=== PATIENT | female | born 1970 | race Caucasian/White ===

== ENCOUNTER → 2016-06-12 | Outpatient (CLI) | payer MEDICARE, MEDICAID ==
[~2016-06-12] MED LIST: ALBUAER3 IN; BECL0.07 INH; DULO60CA PO; FLUD0.1T2 PO; LAMO100T44 PO; METO25TA62 PO; MIDO10TA PO; OXYC10TA44 PO; PANT40TA2 PO; RISP1TAB63 PO; SIMV-13 PO; TRAZ50TA2 PO; ZONI100C43 PO
[2016-06-12 15:33] LABS: Basophils # (auto) 0 uL; Basophils % (auto) 0.4 % (0.0-2.0); DEFINITIVE VIEW TRANSMISSION; Eosinophils # (auto) 0.1 uL; Eosinophils % (auto) 1.9 % (0.0-7.0); Hemoglobin 11.4 g/dL (12.2-16.2); Lymphocytes # (auto) 1.7 uL; Lymphocytes % (auto) 23.7 % (10.0-50.0); Mean Corpuscular Hemoglobin 25.4 pg (28.0-32.0); Mean Corpuscular Hgb Conc. 30.7 g/dL (32.0-36.0); Mean Platelet Volume 7.6 fL (7.4-10.4); Monocytes # (auto) 0.5 uL; Monocytes % (auto) 6.5 % (0.0-12.0); Neutrophils % (auto) 67.5 % (37.0-80.0); Platelet Count (auto) 293 10^3/uL (140-450); Red Cell Distribution Width 13.2 % (11.6-16.0); White Blood Cell 7.4 10^3/uL (4.4-10.8)
[2016-06-12 15:40] LABS: Albumin 3.8 g/dL (3.4-5.0); BUN/Creatinine Ratio 12.1; Bilirubin, Total 0.2 mg/dL (0.2-1.0); Calcium 8.9 mg/dL (8.5-10.1); Potassium 3.8 mmol/L (3.5-5.1); Total Protein 7.6 g/dL (6.4-8.2)
[2016-06-12 16:22] LABS: Urine Bilirubin Negative (Negative); Urine Blood Negative /uL (Negative); Urine Color Yellow (Yellow); Urine Glucose Normal (Normal); Urine Ketone Negative (Negative); Urine Mucus FEW (None Seen); Urine Nitrite Negative (Negative); Urine RBC 1 /hpf (0 - 4); Urine Squamous Epithelial Cell FEW /hpf (<5); Urine Urobilinogen Normal (Negative); Urine pH 6.5 (5.0-8.0)
== END | disposition home or self-care (01) ==
LOC: LAB 14:10
PROVIDERS: ATTEND Internal Medicine
DX: I10 Essential (primary) hypertension (principal); E55.9 Vitamin D deficiency, unspecified; Z00.00 Encounter for general adult medical examination without abnormal findings
CPT/HCPCS: 36415; 80053; 80061; 81001; 82306; 84443; 85025

== ENCOUNTER → 2016-10-29 | Outpatient (CLI) | payer MEDICARE, MEDICAID ==
[2016-10-29 12:17] LABS: Basophils # (auto) 0 uL; Basophils % (auto) 0.7 % (0.0-2.0); CONDITION Y; Eosinophils # (auto) 0.1 uL; Eosinophils % (auto) 1.8 % (0.0-7.0); Hematocrit 38.6 % (36.0-46.0); Hemoglobin 12.9 g/dL (12.2-16.2); Lymphocytes # (auto) 1.4 uL; Lymphocytes % (auto) 27.1 % (10.0-50.0); Mean Corpuscular Hemoglobin 27.5 pg (28.0-32.0); Mean Corpuscular Hgb Conc. 33.4 g/dL (32.0-36.0); Mean Corpuscular Volume 82.2 fL (80.0-100.0); Mean Platelet Volume 6.9 fL (7.4-10.4); Monocytes # (auto) 0.4 uL; Monocytes % (auto) 6.9 % (0.0-12.0); Neutrophils # (auto) 3.3 uL; Neutrophils % (auto) 63.5 % (37.0-80.0); Platelet Count (auto) 355 10^3/uL (140-450); Red Cell Distribution Width 13.6 % (11.6-16.0); White Blood Cell 5.2 10^3/uL (4.4-10.8)
[2016-10-29 12:41] LABS: Urine Bilirubin Negative (Negative); Urine Blood Negative /uL (Negative); Urine Color Yellow (Yellow); Urine Glucose Normal (Normal); Urine Ketone Negative (Negative); Urine Nitrite Negative (Negative); Urine RBC <1 /hpf (0 - 4); Urine Squamous Epithelial Cell FEW /hpf (<5); Urine Urobilinogen Normal (Negative)
[2016-10-29 12:53] LABS: Albumin 4.1 g/dL (3.4-5.0); Bilirubin, Total 0.3 mg/dL (0.2-1.0); Calcium 8.9 mg/dL (8.5-10.1); Potassium 3.9 mmol/L (3.5-5.1)
== END | disposition home or self-care (01) ==
LOC: LAB 12:00
PROVIDERS: ATTEND Internal Medicine
DX: Z00.00 Encounter for general adult medical examination without abnormal findings (principal); I10 Essential (primary) hypertension
CPT/HCPCS: 36415; 80053; 81001; 85025

== ENCOUNTER → 2017-06-09 | Outpatient (CLI) | payer MEDICARE, MEDICAID ==
[2017-06-09 09:33] LABS: Basophils # (auto) 0 uL; Basophils % (auto) 0.6 % (0.0-2.0); Eosinophils # (auto) 0.1 uL; Eosinophils % (auto) 2.1 % (0.0-7.0); Hematocrit 38.7 % (36.0-46.0); Hemoglobin 12.9 g/dL (12.2-16.2); Lymphocytes # (auto) 1.5 uL; Mean Corpuscular Hgb Conc. 33.3 g/dL (32.0-36.0); Mean Corpuscular Volume 81.2 fL (80.0-100.0); Monocytes # (auto) 0.4 uL; Monocytes % (auto) 6.3 % (0.0-12.0); Neutrophils # (auto) 4.3 uL; Platelet Count (auto) 305 10^3/uL (140-450); Red Blood Cells 4.76 10^6/uL (4.0-5.20); Red Cell Distribution Width 13.2 % (11.8-14.3); White Blood Cell 6.4 10^3/uL (4.4-10.8)
[2017-06-09 13:15] LABS: BUN/Creatinine Ratio 17.1; Bilirubin, Total 0.3 mg/dL (0.2-1.0); Calcium 8.8 mg/dL (8.5-10.1); Potassium 3.9 mmol/L (3.5-5.1)
== END | disposition home or self-care (01) ==
LOC: LAB 09:09
PROVIDERS: ATTEND Physician Assistant
DX: E78.2 Mixed hyperlipidemia (principal); M79.7 Fibromyalgia; G89.4 Chronic pain syndrome; R73.9 Hyperglycemia, unspecified; J45.998 Other asthma
CPT/HCPCS: 36415; 80053; 80061; 82306; 83036; 84443; 85025

== ENCOUNTER → 2017-09-02 | Outpatient (CLI) | payer MEDICARE, MEDICAID ==
[2017-09-02 11:39] LABS: Free T4 (Free Thyroxine) 1.18 ng/dL (0.89-1.76); T3 Total 1.03 ng/mL (0.60-1.81)
== END | disposition home or self-care (01) ==
LOC: LAB 09:56
PROVIDERS: ATTEND Physician Assistant
DX: E04.1 Nontoxic single thyroid nodule (principal); F32.9 Major depressive disorder, single episode, unspecified; I10 Essential (primary) hypertension; Z87.891 Personal history of nicotine dependence
CPT/HCPCS: 36415; 84439; 84443; 84480

== ENCOUNTER → 2018-02-03 | Outpatient (CLI) | payer MEDICARE, MEDICAID ==
[2018-02-03 13:40] LABS: Basophils # (auto) 0.1 uL; Basophils % (auto) 0.7 % (0.0-2.0); Eosinophils # (auto) 0.2 uL; Hematocrit 37.9 % (36.0-46.0); Mean Corpuscular Hemoglobin 27.6 pg (28.0-32.0); Mean Corpuscular Hgb Conc. 34.1 g/dL (32.0-36.0); Mean Corpuscular Volume 80.9 fL (80.0-100.0); Monocytes # (auto) 0.5 uL; Monocytes % (auto) 5.9 % (0.0-12.0); Neutrophils # (auto) 6.2 uL; Neutrophils % (auto) 69.4 % (37.0-80.0); Platelet Count (auto) 368 10^3/uL (140-450); Red Blood Cells 4.69 10^6/uL (4.0-5.20); Red Cell Distribution Width 13.2 % (11.8-14.3); White Blood Cell 8.9 10^3/uL (4.4-10.8)
[2018-02-03 15:26] LABS: Potassium 3.9 mmol/L (3.5-5.1)
[2018-02-03 16:00] LABS: Albumin 3.8 g/dL (3.4-5.0); BUN/Creatinine Ratio 13.8; Bilirubin, Total 0.4 mg/dL (0.2-1.0); Calcium 8.3 mg/dL (8.5-10.1); Total Protein 7.9 g/dL (6.4-8.2)
== END | disposition home or self-care (01) ==
LOC: LAB 12:31
PROVIDERS: ATTEND Physician Assistant
DX: E04.1 Nontoxic single thyroid nodule (principal); M79.7 Fibromyalgia; E78.1 Pure hyperglyceridemia; J44.9 Chronic obstructive pulmonary disease, unspecified; F31.32 Bipolar disorder, current episode depressed, moderate
CPT/HCPCS: 36415; 80053; 80061; 84443; 85025

== ENCOUNTER 2018-04-11 14:49 | Emergency (ER) | payer MEDICARE, MEDICAID ==
[~2018-04-11] VITALS: Ht 167.6 cm; Wt 79.4 kg
[2018-04-11 15:53] LABS: Alanine Aminotransferase 27 U/L (13-56); Albumin 3.9 g/dL (3.4-5.0); Anion Gap 4 (5-15); Blood Urea Nitrogen 12 mg/dL (7-18); Calcium 9.1 mg/dL (8.5-10.1); Carbon Dioxide 25 mmol/L (21-32); Chloride 106 mmol/L (98-107); Glucose 91 mg/dL (74-106); Sodium 135 mmol/L (136-145)
[2018-04-11 15:58] LABS: Alkaline Phosphatase 88 U/L (45-117); Aspartate Aminotransferase 13 U/L (15-37); BUN/Creatinine Ratio 16.7; Bilirubin, Total 0.2 mg/dL (0.2-1.0); GFR African American 113 mL/min; GFR Non-African American 93 mL/min; Total Protein 7.7 g/dL (6.4-8.2)
[2018-04-11 16:27] LABS: Basophils # (auto) 0 uL; Basophils % (auto) 0.7 % (0.0-2.0); Eosinophils # (auto) 0.2 uL; Eosinophils % (auto) 2.3 % (0.0-7.0); Hematocrit 37.2 % (36.0-46.0); Hemoglobin 12.3 g/dL (12.2-16.2); Lymphocytes # (auto) 1.9 uL; Lymphocytes % (auto) 27.4 % (10.0-50.0); Mean Corpuscular Hemoglobin 27.1 pg (28.0-32.0); Mean Corpuscular Volume 82.2 fL (80.0-100.0); Monocytes # (auto) 0.5 uL; Monocytes % (auto) 7.2 % (0.0-12.0); Neutrophils # (auto) 4.4 uL; Neutrophils % (auto) 62.4 % (37.0-80.0); Nucleated Red Blood Cells % 0.1 %; Platelet Count (auto) 344 10^3/uL (140-450); Red Blood Cells 4.53 10^6/uL (4.0-5.20); Red Cell Distribution Width 12.9 % (11.8-14.3); White Blood Cell 7.1 10^3/uL (4.4-10.8)
[2018-04-11] MEDS ORDERED: LORazepam 0.5 MG TAB PO ONE (18:00)
[2018-04-11] MEDS ORDERED: IBUPROFEN 800 MG TAB PO ONE (18:00)
[2018-04-11 18:12] VITALS: BP 144/80
[2018-04-11] MEDS ORDERED: PANTOPRAZOLE 40 MG TAB PO ONE (19:00)
[2018-04-11 19:21] LABS: Urine Bacteria NONE SEEN /hpf (None Seen); Urine Blood Negative /uL (Negative); Urine Mucus FEW (None Seen); Urine Specific Gravity 1.018 (1.001-1.035); Urine WBC 1 /hpf (0 - 5)
== END 2018-04-11 19:44 | disposition home or self-care (01) ==
LOC: ER 15:01
DX: R07.89 Other chest pain (principal); J45.909 Unspecified asthma, uncomplicated; F41.9 Anxiety disorder, unspecified; F32.9 Major depressive disorder, single episode, unspecified; G89.4 Chronic pain syndrome; F17.210 Nicotine dependence, cigarettes, uncomplicated; R51 Headache; R42 Dizziness and giddiness; Z88.6 Allergy status to analgesic agent; Z79.899 Other long term (current) drug therapy
CPT/HCPCS: 36415; 71045; 80053; 81001; 84484; 85025; 93005

== ENCOUNTER → 2018-05-10 | Outpatient (CLI) | payer MEDICARE, MEDICAID | END | disposition home or self-care (01) | LOC: LAB 15:00 | PROVIDERS: ATTEND Physician Assistant | DX: L82.1 Other seborrheic keratosis (principal) ==

== ENCOUNTER → 2018-09-14 | Outpatient (CLI) | payer MEDICARE, MEDICAID ==
[2018-09-14 13:18] LABS: Basophils # (auto) 0 uL; Basophils % (auto) 0.6 % (0.0-2.0); Eosinophils # (auto) 0.1 uL; Eosinophils % (auto) 1.7 % (0.0-7.0); Hematocrit 36.7 % (36.0-46.0); Hemoglobin 12.2 g/dL (12.2-16.2); Lymphocytes % (auto) 27.6 % (10.0-50.0); Mean Corpuscular Hemoglobin 27.1 pg (28.0-32.0); Mean Corpuscular Hgb Conc. 33.3 g/dL (32.0-36.0); Mean Corpuscular Volume 81.2 fL (80.0-100.0); Monocytes # (auto) 0.6 uL; Neutrophils # (auto) 4.5 uL; Neutrophils % (auto) 62.1 % (37.0-80.0); Nucleated Red Blood Cells % 0.1 %; Platelet Count (auto) 337 10^3/uL (140-450); Red Blood Cells 4.52 10^6/uL (4.0-5.20); Red Cell Distribution Width 13.4 % (11.8-14.3); White Blood Cell 7.2 10^3/uL (4.4-10.8)
[2018-09-14 14:21] LABS: BUN/Creatinine Ratio 16.3; Calcium 8.7 mg/dL (8.5-10.1)
== END | disposition home or self-care (01) ==
LOC: LAB 12:55
PROVIDERS: ATTEND Registered Nurse General Practice
DX: E16.2 Hypoglycemia, unspecified (principal); R42 Dizziness and giddiness; R94.6 Abnormal results of thyroid function studies; R79.89 Other specified abnormal findings of blood chemistry
CPT/HCPCS: 36415; 80048; 80061; 83036; 84439; 84443; 85025

== ENCOUNTER → 2018-11-14 | Outpatient (CLI) | payer MEDICARE, MEDICAID ==
[2018-11-14 17:35] LABS: Free T4 (Free Thyroxine) 0.81 ng/dL (0.89-1.76); T3 Total 0.74 ng/mL (0.60-1.81)
== END | disposition home or self-care (01) ==
LOC: LAB 15:37
PROVIDERS: ATTEND Physician Assistant
DX: R79.89 Other specified abnormal findings of blood chemistry (principal); J45.909 Unspecified asthma, uncomplicated; I10 Essential (primary) hypertension
CPT/HCPCS: 36415; 84439; 84443; 84480

== ENCOUNTER → 2018-12-29 | Outpatient (CLI) | payer MEDICARE, MEDICAID | END | disposition home or self-care (01) | LOC: XYW 10:26 | PROVIDERS: ATTEND Internal Medicine | DX: R55 Syncope and collapse (principal); I51.7 Cardiomegaly; Z87.898 Personal history of other specified conditions | CPT/HCPCS: 93306 ==

== ENCOUNTER → 2019-01-11 | Outpatient (CLI) | payer MEDICARE, MEDICAID ==
[~2019-01-11] VITALS: Ht 167.6 cm; Wt 84.4 kg
[~2019-01-11] MED LIST changes: +ADENOSINE 71 MG in GIVE UN-DILUTED 0 ML IV STA
[2019-01-11 10:36] LABS: Cholesterol 152 mg/dL (< 200); HDL Cholesterol 49 mg/dL (40-59); LDL Cholesterol 86 mg/dL (< 100); Triglycerides 156 mg/dL (< 150)
== END | disposition home or self-care (01) ==
LOC: LAB 09:14
PROVIDERS: ATTEND Physician Assistant
DX: E78.1 Pure hyperglyceridemia (principal)
CPT/HCPCS: 36415; 80061; J0153

== ENCOUNTER → 2019-01-11 | Outpatient (CLI) | payer MEDICARE, MEDICAID ==
[~2019-01-11] MED LIST changes: -ADENOSINE 71 MG in GIVE UN-DILUTED 0 ML IV STA; -MIDO10TA PO; +MIDO10TA2 PO
== END | disposition home or self-care (01) ==
LOC: XY 09:36
PROVIDERS: ATTEND Internal Medicine
DX: I95.1 Orthostatic hypotension (principal); E78.5 Hyperlipidemia, unspecified; Z87.898 Personal history of other specified conditions
CPT/HCPCS: 36415; 78452; 80061; 93017; A9500; J0153

== ENCOUNTER 2019-01-25 09:33 | Day surgery (SDC) | payer MEDICARE, MEDICAID ==
[2019-01-20 11:55] LABS: Basophils # (auto) 0.1 uL; Hemoglobin 11.8 g/dL (12.2-16.2); Monocytes # (auto) 0.6 uL; Nucleated Red Blood Cells % 0.1 %
[2019-01-20 11:58] LABS: Basophils % (auto) 0.8 % (0.0-2.0); Eosinophils # (auto) 0.2 uL; Hematocrit 35.3 % (36.0-46.0); Lymphocytes # (auto) 2.2 uL; Lymphocytes % (auto) 28.4 % (10.0-50.0); Mean Corpuscular Hemoglobin 26.9 pg (28.0-32.0); Mean Corpuscular Hgb Conc. 33.3 g/dL (32.0-36.0); Mean Corpuscular Volume 80.7 fL (80.0-100.0); Monocytes % (auto) 7.7 % (0.0-12.0); Neutrophils # (auto) 4.8 uL; Neutrophils % (auto) 61.1 % (37.0-80.0); Platelet Count (auto) 380 10^3/uL (140-450); Red Blood Cells 4.37 10^6/uL (4.0-5.20); Red Cell Distribution Width 14.7 % (11.8-14.3); White Blood Cell 7.8 10^3/uL (4.4-10.8)
[2019-01-20 12:14] LABS: INR < 0.93 (0.9-1.15)
[2019-01-20 12:18] LABS: Albumin 4.2 g/dL (3.4-5.0); Calcium 9.3 mg/dL (8.5-10.1); Potassium 3.9 mmol/L (3.5-5.1)
[2019-01-20 12:22] LABS: BUN/Creatinine Ratio 20.8; Bilirubin, Total 0.2 mg/dL (0.2-1.0); Total Protein 8.3 g/dL (6.4-8.2)
[2019-01-20 13:15] LABS: Urine Amorphous Crystal FEW /hpf (None Seen); Urine Bacteria NONE SEEN /hpf (None Seen); Urine Blood Negative /uL (Negative); Urine Specific Gravity 1.016 (1.001-1.035); Urine WBC 1 /hpf (0 - 5)
[~2019-01-25] VITALS: Ht 167.6 cm; Wt 81.8 kg
[~2019-01-25 09:33] MED LIST changes: -BECL0.07 INH; +BUSP30TA21 PO; +FENO1TAB42 PO; +FURO20TA3 PO; +HYDR50TA69 PO; +IBUP800T24 PO; +LEVO25TA6 PO; +LUBI24CA6 PO; +PROM25TA21 PO; +QUET300T23 PO; -RISP1TAB63 PO; +ROSU40TA PO; -SIMV-13 PO; -TRAZ50TA2 PO; +UMEC1AER IN
[2019-01-25] MEDS ORDERED: LIDOCAINE 2%HCL (LOCAL ANESTH.) INJ 20ML MDV ONE (11:48)
[2019-01-25] MEDS ORDERED: MIDAZOLAM HCL 1MG/1ML-2 ML VIAL ONE ×2 (11:48→12:21)
[2019-01-25] MEDS ORDERED: fentaNYL CITRATE 100 MCG/2 ML VL ONE ×2 (11:48→12:20)
[2019-01-25] MEDS ORDERED: VERAPAMIL 2.5MG/ML INJ 2ML VIAL IV ONE (11:48)
[2019-01-25] MEDS ORDERED: IOHEXOL 350 MG/ML 100ML IJ ONE (11:48)
[2019-01-25] MEDS ORDERED: ONDANSETRON HCL 4 MG/2 ML VIAL ONE (12:04)
[2019-01-25] MEDS ORDERED: HEPARIN SODIUM (PORCINE) 5000 UNITS/ML 1ML VIAL ONE (12:23)
[2019-01-25] MEDS ORDERED: KETOROLAC TROMETH 30 MG/ML 1ML VIAL IV ONE (13:15)
== END 2019-01-25 14:50 | disposition home or self-care (01) ==
LOC: CATH 09:33
PROVIDERS: ATTEND Internal Medicine
DX: R07.89 Other chest pain (principal); I10 Essential (primary) hypertension; E78.5 Hyperlipidemia, unspecified; J44.9 Chronic obstructive pulmonary disease, unspecified; F17.210 Nicotine dependence, cigarettes, uncomplicated; M19.90 Unspecified osteoarthritis, unspecified site; Z90.2 Acquired absence of lung [part of]; Z88.8 Allergy status to other drugs, medicaments and biological substances; Z79.899 Other long term (current) drug therapy; Z98.890 Other specified postprocedural states; Z90.710 Acquired absence of both cervix and uterus
CPT/HCPCS: 36415; 80053; 81001; 81025; 85025; 85610; 85730; 93454; C1769; C1887; C1894; J1644; J1885; J2250; J2405; J3010; J7030; Q9967; 99152; 99153

== ENCOUNTER 2019-02-22 08:29 | Day surgery (SDC) | payer MEDICARE, MEDICAID ==
[2019-02-20 11:34] LABS: Basophils # (auto) 0 uL; Basophils % (auto) 0.5 % (0.0-2.0); Eosinophils # (auto) 0.2 uL; Eosinophils % (auto) 3.1 % (0.0-7.0); Hematocrit 35.1 % (36.0-46.0); Hemoglobin 11.3 g/dL (12.2-16.2); Lymphocytes # (auto) 1.8 uL; Lymphocytes % (auto) 27.8 % (10.0-50.0); Mean Corpuscular Hemoglobin 26.3 pg (28.0-32.0); Mean Corpuscular Hgb Conc. 32.2 g/dL (32.0-36.0); Mean Corpuscular Volume 81.5 fL (80.0-100.0); Monocytes # (auto) 0.4 uL; Monocytes % (auto) 6.1 % (0.0-12.0); Neutrophils % (auto) 62.5 % (37.0-80.0); Platelet Count (auto) 342 10^3/uL (140-450); Red Blood Cells 4.31 10^6/uL (4.0-5.20); Red Cell Distribution Width 14.3 % (11.8-14.3); White Blood Cell 6.4 10^3/uL (4.4-10.8)
[2019-02-20 11:46] LABS: INR 0.93 (0.9-1.15); Partial Thromboplastin Time 29.3 sec (23.64-32.05)
[2019-02-20 12:59] LABS: Albumin 3.7 g/dL (3.4-5.0); BUN/Creatinine Ratio 17.4; Calcium 9.2 mg/dL (8.5-10.1); Potassium 3.8 mmol/L (3.5-5.1)
[2019-02-20 13:01] LABS: Bilirubin, Total 0.3 mg/dL (0.2-1.0); Total Protein 7.5 g/dL (6.4-8.2)
[~2019-02-22] VITALS: Ht 167.6 cm; Wt 83.5 kg
[2019-02-22] MEDS ORDERED: VANCOMYCIN 1GM/250ML 250 ML IV ONE (09:54)
[2019-02-22] MEDS ORDERED: fentaNYL CITRATE 100 MCG/2 ML VL ONE (10:03)
[2019-02-22] MEDS ORDERED: VANCOMYCIN HCL 1000 MG VL ONE (10:03)
[2019-02-22] MEDS ORDERED: MIDAZOLAM HCL 1MG/1ML-2 ML VIAL ONE ×2 (10:04→12:16)
[2019-02-22] MEDS ORDERED: LIDOCAINE 2%HCL (LOCAL ANESTH.) INJ 20ML MDV ONE (10:27)
[2019-02-22] MEDS ORDERED: ONDANSETRON HCL 4 MG/2 ML VIAL ONE (13:01)
[2019-02-22] MEDS ORDERED: ACETAMINOPHEN 325 MG TAB PO PRN (14:00)
[2019-02-22] MEDS ORDERED: HYDROcodone-ACET 5/325MG TAB PO PRN (14:00)
== END 2019-02-22 14:45 | disposition home or self-care (01) ==
LOC: CATH 08:29
PROVIDERS: ATTEND Internal Medicine
DX: R55 Syncope and collapse (principal); I25.10 Atherosclerotic heart disease of native coronary artery without angina pectoris; J44.9 Chronic obstructive pulmonary disease, unspecified; I10 Essential (primary) hypertension; E78.5 Hyperlipidemia, unspecified; F17.200 Nicotine dependence, unspecified, uncomplicated; M19.90 Unspecified osteoarthritis, unspecified site; M79.7 Fibromyalgia; Z90.710 Acquired absence of both cervix and uterus; Z90.2 Acquired absence of lung [part of]; Z88.8 Allergy status to other drugs, medicaments and biological substances; Z79.899 Other long term (current) drug therapy; Z98.890 Other specified postprocedural states
CPT/HCPCS: 33285; 36415; 80053; 85025; 85610; 85730; C1764; J2250; J2405; J3010; J3370; 99152; 99153

== ENCOUNTER 2019-03-14 17:49 | Inpatient (IN) | payer MEDICARE, MEDICAID ==
[~2019-03-14] VITALS: Ht 167.6 cm; Wt 96.0 kg
--- NOTE | 2019-03-14 18:04 | NUR ---
Direct Admit Note CECILIA MCMAHON admitted to Telemetry unit as a direct admit per MD order. Patient oriented to Anupama khan RN, unit, room, bed, and unit policies regarding patient care and visiting hours. Patient weighed by bed scale and encouraged to call if they need something. All questions and concerns addressed, patient verbalized understanding. Instructed patient on fall precautions and to call for assistance as needed. patient verbalized understanding. fall precautions in place with bed in lowest locked position with call light within reach. Patient's personal wheelchair at bedside. patient's significant other, Davin, reports that he will take the patient's personal wheelchair and patient's 2 purses home. Patient verbalized understanding and agreed to Davin taking those personal belongings home. Will continue to monitor q1hr & PRN.
--- NOTE | 2019-03-14 18:15 | NUR ---
Heidy Soto N.P., at bedside
[2019-03-14] MEDS ORDERED: HYDROcodone-ACET 10/325MG TAB PO ONE (18:30)
[2019-03-14] MEDS ORDERED: MORPHINE SULFATE 4 MG/ML SYR/VIAL IV PRN (18:30)
[2019-03-14] MEDS ORDERED: NITROGLYCERIN 0.4 MG SL TAB SL PRN ×2 (18:30→19:30)
[2019-03-14] MEDS ORDERED: ONDANSETRON HCL 4 MG/2 ML VIAL IV PRN (18:30)
[2019-03-14] MEDS ORDERED: ACETAMINOPHEN 325 MG TAB PO PRN (18:30)
--- NOTE | 2019-03-14 18:55 | NUR ---
Lizbeth Agrawal, at bedside.
[2019-03-14] MEDS ORDERED: MORPHINE SULF INJ 2 MG/ML SYRINGE 1ML IV PRN ×2 (19:00→19:30)
[2019-03-14] MEDS ORDERED: VANCOMYCIN PER PHARMACY 0 MG IV SCH (19:30)
--- NOTE | 2019-03-14 19:30 | NUR ---
Care endorsed to JEANNA Banda. Patient resting in bed with even and unlabored respirations, no distress noted. Admitting orders endorsed to JEANNA Banda. Solo verbalized understanding.
[2019-03-14 19:39] LABS: Basophils # (auto) 0.1 uL; Hemoglobin 11.5 g/dL (12.2-16.2); Lymphocytes # (auto) 2.4 uL; Monocytes # (auto) 0.8 uL
[2019-03-14 19:43] LABS: Basophils % (auto) 0.7 % (0.0-2.0); Eosinophils # (auto) 0.3 uL; Eosinophils % (auto) 2.5 % (0.0-7.0); Hematocrit 35.2 % (36.0-46.0); Lymphocytes % (auto) 22.7 % (10.0-50.0); Mean Corpuscular Hemoglobin 26.5 pg (28.0-32.0); Mean Corpuscular Hgb Conc. 32.8 g/dL (32.0-36.0); Mean Corpuscular Volume 80.8 fL (80.0-100.0); Monocytes % (auto) 7.6 % (0.0-12.0); Neutrophils % (auto) 66.5 % (37.0-80.0); Platelet Count (auto) 332 10^3/uL (140-450); Red Blood Cells 4.36 10^6/uL (4.0-5.20); White Blood Cell 10.6 10^3/uL (4.4-10.8)
[2019-03-14 19:58] LABS: Alanine Aminotransferase 30 U/L (13-56); Albumin 3.7 g/dL (3.4-5.0); Anion Gap 6 (5-15); Aspartate Aminotransferase 16 U/L (15-37); BUN/Creatinine Ratio 24.4; Blood Urea Nitrogen 22 mg/dL (7-18); Calcium 8.4 mg/dL (8.5-10.1); Carbon Dioxide 27 mmol/L (21-32); Chloride 104 mmol/L (98-107); GFR African American 87 mL/min; GFR Non-African American 72 mL/min; Glucose 96 mg/dL (74-106); Potassium 3.7 mmol/L (3.5-5.1); Sodium 137 mmol/L (136-145)
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
[2019-03-14 20:03] LABS: Alkaline Phosphatase 84 U/L (45-117); Bilirubin, Total 0.2 mg/dL (0.2-1.0); Total Protein 7.9 g/dL (6.4-8.2)
[2019-03-14] MEDS: VANCOMYCIN 1GM/250ML 250 ML IV SCH (21:16)
[2019-03-14] MEDS ORDERED: HYDROcodone-ACET 5/325MG TAB PO PRN (21:30)
[2019-03-14] MEDS ORDERED: TEMAZEPAM 15 MG CAP PO ONE (21:30)
[2019-03-14 22:00] VITALS: BP 125/72
[2019-03-14] MEDS: lamoTRIgine 100 MG TAB PO SCH (22:08)
[2019-03-14] MEDS: ATORVASTATIN 20 MG TAB PO SCH (22:09)
[2019-03-14] MEDS: PANTOPRAZOLE 40 MG TAB PO SCH (22:09)
[2019-03-14 22:36] VITALS: BP 125/72
[2019-03-14] MEDS: PIPERACILLIN-TAZOB 3.375GM 100 ML IV SCH (23:49)
[2019-03-15] MEDS: ALBUTEROL SULF 2.5 MG/0.5ML(0.5%) NEB SOLN NEB PRN ×3 (04:40→18:21)
[2019-03-15] MEDS: IPRATROPIUM BROM 0.5 MG/2.5ML INH SOL NEB PRN ×3 (04:40→18:21)
[2019-03-15 05:14] VITALS: BP 108/74
[2019-03-15] MEDS: PIPERACILLIN-TAZOB 3.375GM 100 ML IV SCH ×4 (05:55→23:33)
[2019-03-15] MEDS: MIDODRINE HCL 10 MG TAB PO SCH ×3 (05:56→17:26)
[2019-03-15] MEDS: LEVOTHYROXINE SODIUM 25 MCG TAB PO SCH (06:43)
[2019-03-15] MEDS: VANCOMYCIN 1GM/250ML 250 ML IV SCH ×2 (08:59→21:00)
[2019-03-15 09:00] VITALS: BP 138/80
[2019-03-15] MEDS: DULoxetine HCL 30 MG CAP PO SCH (09:01)
[2019-03-15] MEDS: ASPirin 81 mg TAB PO SCH (09:03)
[2019-03-15] MEDS: PANTOPRAZOLE 40 MG TAB PO SCH ×2 (09:03→21:29)
[2019-03-15] MEDS: CLOPIDOGREL BISULFATE 75 MG TAB PO SCH (09:03)
[2019-03-15] MEDS: FLUDROCORTISONE ACETATE 0.1 MG TAB PO SCH (09:05)
[2019-03-15] MEDS: METOPROLOL SUCCINATE XL 50 MG TAB PO SCH (09:05)
[2019-03-15] MEDS: FUROSEMIDE 20 MG TAB PO SCH (09:06)
[2019-03-15] MEDS: MORPHINE SULF INJ 2 MG/ML SYRINGE 1ML IV PRN ×2 (09:11→13:35)
[2019-03-15] MEDS: ONDANSETRON HCL 4 MG/2 ML VIAL IV PRN (09:12)
--- NOTE | 2019-03-15 09:30 | NUR ---
DRESSING CHANGED INCISIONAL WOUND ON LEFT CHEST CLEANED AND DRESSED. PT TOLERATED WELL.
[2019-03-15] MEDS ORDERED: PANTOPRAZOLE 40 MG/10 ML VIAL INJ IV SCH (10:00)
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
[2019-03-15 11:50] LABS: Potassium 3.7 mmol/L (3.5-5.1)
[2019-03-15 11:52] LABS: BUN/Creatinine Ratio 21.4
[2019-03-15 13:00] VITALS: BP 135/74
--- NOTE | 2019-03-15 13:15 | NUR ---
PAGED PICC LINE RN RE MIDLINE ORDER PER PICC RN, SHE WILL BE HERE IN ABOUT AN HOUR.
--- NOTE | 2019-03-15 15:15 | NUR ---
Midline Placement: Patient educated on need for midline placement. All risks and benefits explained and all questions and concerns addresses prior to procedure. 18g/10cm midline inserted via right basilic vein using Ultrasound. Sterile technique utilized. Blood return obtained from lumen and flushed easily with NS using proper technique. Midline secured with saline lock; biodisc and occlusive dressing applied. Primary RN notified. Midline lot #[id number]
[2019-03-15] MEDS ORDERED: PROMETHAZINE HCL 25 MG/ML 1ML IV PRN (15:45)
[2019-03-15] MEDS ORDERED: hydrOXYzine 25 MG TAB or CAP PO PRN (15:45)
--- NOTE | 2019-03-15 15:45 | NUR ---
PAGED DR SAMUELS RE: PT'S HOME MEDS NEEDS TO BE ORDERED
--- NOTE | 2019-03-15 15:50 | NUR ---
SPOKE TO DR SAMUELS. NEW ORDERS RECEIVED AND CARRIED OUT. PT INFORMED.
[2019-03-15 17:00] VITALS: BP 128/54
--- NOTE | 2019-03-15 18:02 | NUR ---
DRESSING CHANGED INCISIONAL WOUND CLEANED. MINIMAL DRAINAGE NOTED. DRESSING CHANGED. PT TOLERATED WELL.
--- NOTE | 2019-03-15 18:32 | NUR ---
CLOSING NOTES PT RESTING IN BED, EATING DINNER. NO DISTRESS NOTED, DENIES SOB, PAIN MANAGEABLE.
--- NOTE | 2019-03-15 19:45 | NUR ---
ASSUMED CARE ,PT. AWAKE, NO C/O PAIN, RELATIVE AT BEDSIDE, NOT IN DISTRESS.
[2019-03-15] MEDS: NICOTINE 14 MG/24HR TOPICAL PATCH TD SCH (21:26)
[2019-03-15] MEDS: lamoTRIgine 100 MG TAB PO SCH (21:28)
[2019-03-15] MEDS: busPIRone HCL 10 MG TAB PO SCH (21:28)
[2019-03-15] MEDS: ATORVASTATIN 20 MG TAB PO SCH (21:28)
[2019-03-15] MEDS: QUEtiapine FUMARATE 100 MG TAB PO SCH (21:29)
[2019-03-15 22:00] VITALS: BP 126/67
[2019-03-16] MEDS: MORPHINE SULF INJ 2 MG/ML SYRINGE 1ML IV PRN ×4 (04:41→20:11)
[2019-03-16] MEDS: ONDANSETRON HCL 4 MG/2 ML VIAL IV PRN ×4 (04:47→20:11)
[2019-03-16] MEDS: IPRATROPIUM BROM 0.5 MG/2.5ML INH SOL NEB PRN ×3 (04:55→20:37)
[2019-03-16] MEDS: ALBUTEROL SULF 2.5 MG/0.5ML(0.5%) NEB SOLN NEB PRN ×3 (04:55→20:37)
[2019-03-16 05:00] VITALS: BP 105/57
[2019-03-16] MEDS: MIDODRINE HCL 10 MG TAB PO SCH ×3 (05:30→18:23)
[2019-03-16] MEDS: PIPERACILLIN-TAZOB 3.375GM 100 ML IV SCH ×2 (05:30→22:03)
--- NOTE | 2019-03-16 05:40 | NUR ---
PT ASSESSED FOR PRN MED NEB TX. SPO2 100% ON RA, HR 76. PT DENIES ANY RESPIRATORY DISTRESS. NO TX INDICATED. PT IS AWARE TO HAVE RT PAGED IF TX NEEDED.
[2019-03-16] MEDS: LEVOTHYROXINE SODIUM 25 MCG TAB PO SCH (06:10)
--- NOTE | 2019-03-16 08:00 | NUR ---
Opening Note Assumed care of patient. She is A & O x4, no s/s of distress, awoke to her name. Patient c/o generalized body pain and sore throat this morning. Patient states she has a cough and is producing yellow phlegm. Will monitor. POC discussed with patient. Bed is in lowest, locked position, call light within reach bed rails up x2. Will continue to monitor Q1h and PRN.
[2019-03-16 09:00] VITALS: BP 124/69
[2019-03-16] MEDS: CRESTOR 40 MG PO SCH (10:00)
[2019-03-16] MEDS ORDERED: BUSPIRONE PO SCH (10:00)
[2019-03-16] MEDS: busPIRone HCL 10 MG TAB PO SCH ×2 (10:20→21:14)
[2019-03-16] MEDS: ASPirin 81 mg TAB PO SCH (10:20)
[2019-03-16] MEDS: CLOPIDOGREL BISULFATE 75 MG TAB PO SCH (10:20)
[2019-03-16] MEDS: DULoxetine HCL 30 MG CAP PO SCH (10:20)
[2019-03-16] MEDS: FLUDROCORTISONE ACETATE 0.1 MG TAB PO SCH (10:21)
[2019-03-16] MEDS: FUROSEMIDE 20 MG TAB PO SCH (10:23)
[2019-03-16] MEDS: METOPROLOL SUCCINATE XL 50 MG TAB PO SCH (10:23)
[2019-03-16] MEDS: PANTOPRAZOLE 40 MG TAB PO SCH ×2 (10:24→21:15)
[2019-03-16] MEDS: NICOTINE 14 MG/24HR TOPICAL PATCH TD SCH (10:25)
[2019-03-16] MEDS: VANCOMYCIN 1GM/250ML 250 ML IV SCH ×2 (12:37→20:52)
--- NOTE | 2019-03-16 12:40 | NUR ---
Dr. Murguia at bedside. Notified him of patient sore throat, he will order medication. Will medicate per orders.
[2019-03-16] MEDS ORDERED: PIPERACILLIN-TAZOB 3.375GM 100 ML IV SCH ×2 (12:45→14:00)
[2019-03-16] MEDS: OXYCODONE W/ ACETAMINOPHEN 5/325MG TABLET PO PRN (12:48)
[2019-03-16 13:00] VITALS: BP 133/83
[2019-03-16] MEDS: THROAT LOZENGES(CEPASTAT) MT PRN ×2 (15:34→18:23)
[2019-03-16 16:42] VITALS: BP 128/73
[2019-03-16] MEDS: lamoTRIgine 100 MG TAB PO SCH (21:14)
[2019-03-16] MEDS: QUEtiapine FUMARATE 100 MG TAB PO SCH (21:15)
[2019-03-16] MEDS: ATORVASTATIN 20 MG TAB PO SCH (21:15)
[2019-03-16 22:00] VITALS: BP 144/76
[2019-03-17] MEDS: PIPERACILLIN-TAZOB 3.375GM 100 ML IV SCH ×3 (03:34→16:00)
[2019-03-17 05:00] VITALS: BP 105/61
[2019-03-17] MEDS: MORPHINE SULF INJ 2 MG/ML SYRINGE 1ML IV PRN ×2 (05:22→12:18)
[2019-03-17] MEDS: ONDANSETRON HCL 4 MG/2 ML VIAL IV PRN ×2 (05:22→12:13)
[2019-03-17] MEDS: MIDODRINE HCL 10 MG TAB PO SCH ×3 (05:34→18:00)
[2019-03-17] MEDS: LEVOTHYROXINE SODIUM 25 MCG TAB PO SCH (06:07)
[2019-03-17 06:23] LABS: Basophils # (auto) 0.1 uL; Eosinophils # (auto) 0.2 uL; Hematocrit 33.2 % (36.0-46.0); Mean Corpuscular Hgb Conc. 33.1 g/dL (32.0-36.0); Monocytes # (auto) 0.6 uL; Neutrophils % (auto) 60.8 % (37.0-80.0)
[2019-03-17] MEDS: ALBUTEROL SULF 2.5 MG/0.5ML(0.5%) NEB SOLN NEB PRN ×2 (06:26→10:34)
[2019-03-17] MEDS: IPRATROPIUM BROM 0.5 MG/2.5ML INH SOL NEB PRN ×2 (06:26→10:34)
[2019-03-17 06:27] LABS: Basophils % (auto) 0.6 % (0.0-2.0); Eosinophils % (auto) 2.8 % (0.0-7.0); Lymphocytes # (auto) 2.4 uL; Lymphocytes % (auto) 28.3 % (10.0-50.0); Mean Corpuscular Hemoglobin 26.7 pg (28.0-32.0); Mean Corpuscular Volume 80.9 fL (80.0-100.0); Monocytes % (auto) 7.5 % (0.0-12.0); Neutrophils # (auto) 5.1 uL; Platelet Count (auto) 304 10^3/uL (140-450); Red Cell Distribution Width 14.3 % (11.8-14.3); White Blood Cell 8.5 10^3/uL (4.4-10.8)
[2019-03-17] MEDS: THROAT LOZENGES(CEPASTAT) MT PRN (06:44)
--- NOTE | 2019-03-17 07:45 | NUR ---
Opening Note Assumed care of patient. She is A & O x4, no s/s of distress, awoke to her name. Patient c/o generalized body pain and sore throat this morning. POC discussed with patient. Bed is in lowest, locked position, call light within reach bed rails up x2. Will continue to monitor Q1h and PRN.
[2019-03-17 08:00] VITALS: BP 102/37
[2019-03-17] MEDS: OXYCODONE W/ ACETAMINOPHEN 5/325MG TABLET PO PRN (08:42)
[2019-03-17] MEDS: VANCOMYCIN 1GM/250ML 250 ML IV SCH (08:43)
[2019-03-17] MEDS: DULoxetine HCL 30 MG CAP PO SCH (10:21)
[2019-03-17] MEDS: ASPirin 81 mg TAB PO SCH (10:21)
[2019-03-17] MEDS: CLOPIDOGREL BISULFATE 75 MG TAB PO SCH (10:21)
[2019-03-17] MEDS: busPIRone HCL 10 MG TAB PO SCH (10:21)
[2019-03-17] MEDS: PANTOPRAZOLE 40 MG TAB PO SCH (10:21)
[2019-03-17] MEDS: FLUDROCORTISONE ACETATE 0.1 MG TAB PO SCH (10:22)
[2019-03-17] MEDS: NICOTINE 14 MG/24HR TOPICAL PATCH TD SCH (10:23)
[2019-03-17] MEDS: CRESTOR 40 MG PO SCH (10:24)
[2019-03-17] MEDS: METOPROLOL SUCCINATE XL 50 MG TAB PO SCH (10:39)
[2019-03-17] MEDS: FUROSEMIDE 20 MG TAB PO SCH (10:40)
[2019-03-17 13:00] VITALS: BP 115/65
[2019-03-17 17:00] VITALS: BP 123/77
--- NOTE | 2019-03-17 18:56 | NUR ---
Discharge instructions given as ordered. Encourage to follow up with PMD as instructed. All questions and concerns addressed. Patient verbalized understanding. Medication reconciliation form completed and copy given to patient. Home medications held in Pharmacy returned to [facility]. IV removed with catheter intact, pressure dressing applied. Telemetry unit returned to ICU. Patient taken to vehicle via wheelchair with all personal belongings, accompanied by staff and family member. No distress noted at time of departure.
== END 2019-03-17 18:56 | disposition home or self-care (01) | DRG 863 ==
LOC: TELE-WESTW 17:49
PROVIDERS: ADMIT Internal Medicine; ATTEND Internal Medicine
DX: T81.41XA Infection following a procedure, superficial incisional surgical site, initial encounter (principal); E66.9 Obesity, unspecified; I95.1 Orthostatic hypotension; E03.9 Hypothyroidism, unspecified; M79.7 Fibromyalgia; G89.29 Other chronic pain; M54.5 Low back pain; I10 Essential (primary) hypertension; Y83.8 Other surgical procedures as the cause of abnormal reaction of the patient, or of later complication, without mention of misadventure at the time of the procedure; J44.9 Chronic obstructive pulmonary disease, unspecified; Z79.899 Other long term (current) drug therapy; Z82.3 Family history of stroke; Z86.718 Personal history of other venous thrombosis and embolism; Z72.0 Tobacco use; Z82.49 Family history of ischemic heart disease and other diseases of the circulatory system; Z83.3 Family history of diabetes mellitus; Z68.34 Body mass index [BMI] 34.0-34.9, adult; Y92.89 Other specified places as the place of occurrence of the external cause
CPT/HCPCS: 36415; 71045; 76536; 80048; 80053; 80202; 82565; 83880; 84443; 84484; 85025; 87205; 94640; G0378; J2405; J2543

== ENCOUNTER → 2019-05-18 | Outpatient (CLI) | payer MEDICARE, MEDICAID ==
[~2019-05-18] MED LIST changes: +FENO145T27 PO; -FENO1TAB42 PO; -METO25TA62 PO; +METO25TA93 PO
== END | disposition home or self-care (01) ==
LOC: LAB 12:43
PROVIDERS: ATTEND Physician Assistant
DX: M79.7 Fibromyalgia (principal); M77.9 Enthesopathy, unspecified; E78.1 Pure hyperglyceridemia; Z99.3 Dependence on wheelchair; Z88.8 Allergy status to other drugs, medicaments and biological substances
CPT/HCPCS: 36415; 86141; 86431

== ENCOUNTER → 2019-09-26 | Outpatient (CLI) | payer MEDICARE, MEDICAID ==
[2019-09-26 13:30] LABS: Hemoglobin 11.8 g/dL (12.2-16.2); Monocytes # (auto) 0.5 10 ^3/uL (0-1.3); Neutrophils # (auto) 4.7 10 ^3/uL (1.6-8.6); White Blood Cell 7.4 10^3/uL (4.4-10.8)
[2019-09-26 13:32] LABS: Basophils # (auto) 0 10 ^3/uL (0-0.2); Basophils % (auto) 0.6 % (0.0-2.0); Eosinophils # (auto) 0.2 10 ^3/uL (0-0.8); Hematocrit 35.9 % (36.0-46.0); Mean Corpuscular Hemoglobin 25.9 pg (28.0-32.0); Mean Corpuscular Hgb Conc. 32.9 g/dL (32.0-36.0); Mean Corpuscular Volume 78.8 fL (80.0-100.0); Monocytes % (auto) 7.3 % (0.0-12.0); Neutrophils % (auto) 63.1 % (37.0-80.0); Nucleated Red Blood Cells % 0.1 %; Platelet Count (auto) 325 10^3/uL (140-450); Red Blood Cells 4.55 10^6/uL (4.0-5.20); Red Cell Distribution Width 14.7 % (11.8-14.3)
[2019-09-26 14:26] LABS: Calcium 9.1 mg/dL (8.5-10.1); Potassium 3.9 mmol/L (3.5-5.1)
[2019-09-26 14:31] LABS: BUN/Creatinine Ratio 15.1; Bilirubin, Total 0.3 mg/dL (0.2-1.0); Total Protein 8.2 g/dL (6.4-8.2)
== END | disposition home or self-care (01) ==
LOC: LAB 13:08
PROVIDERS: ATTEND Physician Assistant
DX: E04.1 Nontoxic single thyroid nodule (principal); E03.9 Hypothyroidism, unspecified; D64.9 Anemia, unspecified; J44.9 Chronic obstructive pulmonary disease, unspecified; E78.5 Hyperlipidemia, unspecified; E78.1 Pure hyperglyceridemia; I10 Essential (primary) hypertension
CPT/HCPCS: 36415; 80053; 80061; 84443; 85025

== ENCOUNTER → 2019-11-10 | Outpatient (CLI) | payer MEDICARE, MEDICAID ==
[2019-11-13 11:05] LABS: IgE Mouse Urine <0.10 kU/L (Class 0)
== END | disposition home or self-care (01) ==
LOC: LAB 15:16
PROVIDERS: ATTEND Internal Medicine Pulmonary Disease
DX: J45.909 Unspecified asthma, uncomplicated (principal)
CPT/HCPCS: 82785

== ENCOUNTER → 2020-02-23 | Day surgery (SDC) | payer MEDICARE, MEDICAID ==
[2020-02-19 13:58] LABS: Eosinophils # (auto) 0.1 10 ^3/uL (0-0.8); Hemoglobin 12.4 g/dL (12.2-16.2); Monocytes # (auto) 0.5 10 ^3/uL (0-1.3)
[2020-02-19 14:00] LABS: Basophils # (auto) 0.1 10 ^3/uL (0-0.2); Basophils % (auto) 0.8 % (0.0-2.0); Eosinophils % (auto) 1.9 % (0.0-7.0); Hematocrit 37.5 % (36.0-46.0); Lymphocytes % (auto) 30.4 % (10.0-50.0); Mean Corpuscular Hemoglobin 26.3 pg (28.0-32.0); Mean Corpuscular Hgb Conc. 32.9 g/dL (32.0-36.0); Mean Corpuscular Volume 79.9 fL (80.0-100.0); Monocytes % (auto) 7.3 % (0.0-12.0); Neutrophils % (auto) 59.6 % (37.0-80.0); Nucleated Red Blood Cells % 0.1 %; Platelet Count (auto) 390 10^3/uL (140-450); Red Cell Distribution Width 14.1 % (11.8-14.3); White Blood Cell 6.7 10^3/uL (4.4-10.8)
[2020-02-19 14:14] LABS: INR 0.97 (0.9-1.15)
[~2020-02-23] VITALS: Ht 167.6 cm; Wt 88.5 kg
[~2020-02-23] MED LIST changes: +ALBU0.08 HHN; +ASPI-543 PO; +BUDE0.5S IN; +ERGO1CAP12 PO; +FLUT1SPR21; -LAMO100T44 PO; +LAMO200T34 PO; +LIDOCAINE VISCOUS 2% 15ML UD ONE; +LORA-154 PO; +METO-169 PO; -METO25TA93 PO; +MIDAZOLAM HCL 5 MG/ML-1ML VIAL ONE; -MIDO10TA2 PO; +MIRT1TAB38 PO; -PROM25TA21 PO; +QUET100T46 PO; +SODIUM CHLORIDE LOCK 10 ML ONE; +SUCR1TAB PO; +diphenhdrAMINE HCL 50 MG/1 ML VL ONE; +fentaNYL CITRATE 100 MCG/2 ML VL ONE
[2020-02-23 13:40] VITALS: BP 129/80
== END | disposition home or self-care (01) ==
LOC: GI 11:42
PROVIDERS: ATTEND Internal Medicine Gastroenterology
DX: R10.9 Unspecified abdominal pain (principal); K29.50 Unspecified chronic gastritis without bleeding; K22.10 Ulcer of esophagus without bleeding; K44.9 Diaphragmatic hernia without obstruction or gangrene; K31.7 Polyp of stomach and duodenum; K27.9 Peptic ulcer, site unspecified, unspecified as acute or chronic, without hemorrhage or perforation; D64.9 Anemia, unspecified; K21.9 Gastro-esophageal reflux disease without esophagitis; J44.9 Chronic obstructive pulmonary disease, unspecified; F17.210 Nicotine dependence, cigarettes, uncomplicated; F41.9 Anxiety disorder, unspecified; I50.9 Heart failure, unspecified; E66.9 Obesity, unspecified; F20.9 Schizophrenia, unspecified; F31.30 Bipolar disorder, current episode depressed, mild or moderate severity, unspecified; Z88.8 Allergy status to other drugs, medicaments and biological substances; Z90.710 Acquired absence of both cervix and uterus; Z79.899 Other long term (current) drug therapy; Z20.828 Contact with and (suspected) exposure to other viral communicable diseases; Z79.82 Long term (current) use of aspirin; Z86.718 Personal history of other venous thrombosis and embolism; Z68.31 Body mass index [BMI] 31.0-31.9, adult; Z98.890 Other specified postprocedural states
CPT/HCPCS: 36415; 43239; 85025; 85610; 85730; 88305; 88342; J1200; J2250; J3010; J7030; U0003; G0500

== ENCOUNTER → 2020-09-25 | Outpatient (CLI) | payer MEDICARE, MEDICAID ==
[~2020-09-25] MED LIST changes: -IBUP800T24 PO; +IBUP800T27 PO; -LIDOCAINE VISCOUS 2% 15ML UD ONE; -LORA-154 PO; +LORA-483 PO; -METO-169 PO; +METO-289 PO; -MIDAZOLAM HCL 5 MG/ML-1ML VIAL ONE; -SODIUM CHLORIDE LOCK 10 ML ONE; -diphenhdrAMINE HCL 50 MG/1 ML VL ONE; -fentaNYL CITRATE 100 MCG/2 ML VL ONE
[2020-09-25 12:21] LABS: Eosinophils # (auto) 0.3 10 ^3/uL (0-0.8); Hemoglobin 11.8 g/dL (12.2-16.2); Mean Corpuscular Volume 80.6 fL (80.0-100.0); Monocytes # (auto) 0.5 10 ^3/uL (0-1.3); Nucleated Red Blood Cells % 0.1 %; Red Blood Cells 4.46 10^6/uL (4.0-5.20); Red Cell Distribution Width 13.7 % (11.8-14.3)
[2020-09-25 12:22] LABS: Basophils # (auto) 0 10 ^3/uL (0-0.2); Basophils % (auto) 0.6 % (0.0-2.0); Eosinophils % (auto) 3.9 % (0.0-7.0); Lymphocytes # (auto) 1.9 10 ^3/uL (0.4-5.4); Lymphocytes % (auto) 26.5 % (10.0-50.0); Mean Corpuscular Hemoglobin 26.4 pg (28.0-32.0); Mean Corpuscular Hgb Conc. 32.7 g/dL (32.0-36.0); Monocytes % (auto) 6.8 % (0.0-12.0); Neutrophils # (auto) 4.4 10 ^3/uL (1.6-8.6); Neutrophils % (auto) 62.2 % (37.0-80.0); Platelet Count (auto) 315 10^3/uL (140-450); White Blood Cell 7.1 10^3/uL (4.4-10.8)
[2020-09-25 12:52] LABS: Albumin 3.8 g/dL (3.4-5.0); Calcium 9.1 mg/dL (8.5-10.1); Potassium 4.1 mmol/L (3.5-5.1)
[2020-09-25 12:57] LABS: BUN/Creatinine Ratio 21.3; Bilirubin, Total 0.2 mg/dL (0.2-1.0); Total Protein 7.6 g/dL (6.4-8.2)
== END | disposition home or self-care (01) ==
LOC: LAB 12:08
PROVIDERS: ATTEND Nurse Practitioner Family
DX: E78.1 Pure hyperglyceridemia (principal); D47.3 Essential (hemorrhagic) thrombocythemia; J44.9 Chronic obstructive pulmonary disease, unspecified; M79.7 Fibromyalgia; E16.2 Hypoglycemia, unspecified
CPT/HCPCS: 36415; 80053; 80061; 84439; 85025

== ENCOUNTER 2020-10-18 08:01 | Day surgery (SDC) | payer MEDICARE, MEDICAID ==
[2020-10-16 10:04] LABS: Eosinophils # (auto) 0.2 10 ^3/uL (0-0.8); Hemoglobin 11.7 g/dL (12.2-16.2); Lymphocytes # (auto) 1.6 10 ^3/uL (0.4-5.4); Monocytes # (auto) 0.4 10 ^3/uL (0-1.3); Neutrophils # (auto) 2.9 10 ^3/uL (1.6-8.6); Red Cell Distribution Width 13.4 % (11.8-14.3); White Blood Cell 5.1 10^3/uL (4.4-10.8)
[2020-10-16 10:06] LABS: Basophils # (auto) 0 10 ^3/uL (0-0.2); Basophils % (auto) 0.9 % (0.0-2.0); Eosinophils % (auto) 3.2 % (0.0-7.0); Lymphocytes % (auto) 30.8 % (10.0-50.0); Mean Corpuscular Hemoglobin 27.1 pg (28.0-32.0); Mean Corpuscular Hgb Conc. 34.3 g/dL (32.0-36.0); Mean Corpuscular Volume 79.2 fL (80.0-100.0); Monocytes % (auto) 8.2 % (0.0-12.0); Neutrophils % (auto) 56.9 % (37.0-80.0); Nucleated Red Blood Cells % 0.1 %; Platelet Count (auto) 327 10^3/uL (140-450); Red Blood Cells 4.29 10^6/uL (4.0-5.20)
[2020-10-16 10:28] LABS: Potassium 3.8 mmol/L (3.5-5.1)
[2020-10-16 10:44] LABS: Albumin 3.9 g/dL (3.4-5.0); Bilirubin, Total 0.4 mg/dL (0.2-1.0); Calcium 9.2 mg/dL (8.5-10.1); Total Protein 7.4 g/dL (6.4-8.2)
[~2020-10-18] VITALS: Ht 167.6 cm; Wt 90.7 kg
[~2020-10-18 08:01] MED LIST changes: +BUDE1AER4 IN; +DICL1GEL72 EX; +FAMO-12 PO; -HYDR50TA69 PO; -OXYC10TA44 PO; +PRAM0.12 PO; -QUET100T46 PO; -QUET300T23 PO; +QUET400T12 PO; -SUCR1TAB PO
[2020-10-18] MEDS ORDERED: MIDAZOLAM HCL 1MG/1ML-2 ML VIAL ONE (09:17)
[2020-10-18] MEDS ORDERED: LIDOCAINE 2%HCL (LOCAL ANESTH.) INJ 20ML MDV ONE (09:17)
[2020-10-18] MEDS ORDERED: fentaNYL CITRATE 100 MCG/2 ML VL ONE (09:17)
[2020-10-18] MEDS ORDERED: VANCOMYCIN 1GM/250ML 250 ML IV ONE ×2 (11:30→11:45)
== END 2020-10-18 14:05 | disposition home or self-care (01) ==
LOC: CATH 08:01
PROVIDERS: ATTEND Internal Medicine
DX: R00.2 Palpitations (principal); E78.5 Hyperlipidemia, unspecified; I73.9 Peripheral vascular disease, unspecified; J44.9 Chronic obstructive pulmonary disease, unspecified; F17.210 Nicotine dependence, cigarettes, uncomplicated; E78.00 Pure hypercholesterolemia, unspecified; I50.9 Heart failure, unspecified; F41.9 Anxiety disorder, unspecified; F32.9 Major depressive disorder, single episode, unspecified; F20.9 Schizophrenia, unspecified; R09.1 Pleurisy; Z20.822 Contact with and (suspected) exposure to COVID-19; Z98.890 Other specified postprocedural states; Z79.899 Other long term (current) drug therapy; Z79.82 Long term (current) use of aspirin; Z68.32 Body mass index [BMI] 32.0-32.9, adult; Z86.718 Personal history of other venous thrombosis and embolism; Z90.710 Acquired absence of both cervix and uterus; Z88.8 Allergy status to other drugs, medicaments and biological substances
CPT/HCPCS: 33286; 36415; 80053; 85025; 85610; 85730; J2250; J3010; J3370; J7040; U0003; 99152

== ENCOUNTER 2021-07-17 16:34 | Emergency (ER) | payer MEDICARE, MEDICAID ==
[~2021-07-17] VITALS: Ht 167.6 cm; Wt 90.7 kg
[~2021-07-17 16:34] MED LIST changes: -QUET400T12 PO; +QUET400T13 PO
[2021-07-17 19:00] LABS: Basophils # (auto) 0.1 10 ^3/uL (0-0.2); Basophils % (auto) 1.2 % (0.0-2.0); Eosinophils # (auto) 0.2 10 ^3/uL (0-0.8); Eosinophils % (auto) 1.7 % (0.0-7.0); Hematocrit 31.3 % (36.0-46.0); Hemoglobin 10.4 g/dL (12.2-16.2); Lymphocytes # (auto) 3.3 10 ^3/uL (0.4-5.4); Lymphocytes % (auto) 33.8 % (10.0-50.0); Mean Corpuscular Hemoglobin 26.4 pg (28.0-32.0); Mean Corpuscular Hgb Conc. 33.2 g/dL (32.0-36.0); Mean Corpuscular Volume 79.6 fL (80.0-100.0); Monocytes # (auto) 0.6 10 ^3/uL (0-1.3); Monocytes % (auto) 6.2 % (0.0-12.0); Neutrophils # (auto) 5.5 10 ^3/uL (1.6-8.6); Neutrophils % (auto) 57.1 % (37.0-80.0); Nucleated Red Blood Cells % 0.1 %; Red Blood Cells 3.93 10^6/uL (4.0-5.20); Red Cell Distribution Width 14.5 % (11.8-14.3); White Blood Cell 9.7 10^3/uL (4.4-10.8)
[2021-07-17 19:19] LABS: Albumin 3.5 g/dL (3.4-5.0); Calcium 8.7 mg/dL (8.5-10.1); Magnesium 2.8 mg/dL (1.6-2.6); Potassium 3.7 mmol/L (3.5-5.1)
[2021-07-17 19:24] LABS: BUN/Creatinine Ratio 17.2; Bilirubin, Total 0.3 mg/dL (0.2-1.0); Total Protein 6.8 g/dL (6.4-8.2)
[2021-07-17] MEDS ORDERED: OXYCODONE W/ ACETAMINOPHEN 5/325MG TABLET PO ONE (20:30)
[2021-07-17] MEDS ORDERED: IOHEXOL 350 MG/ML 100ML IJ ONE (20:36)
[2021-07-18 00:43] LABS: Urine Bacteria NONE SEEN /hpf (None Seen); Urine Blood Negative /uL (Negative); Urine Mucus FEW (None Seen); Urine Specific Gravity > 1.050 (1.001-1.035); Urine WBC 3 /hpf (0 - 5)
[2021-07-18 02:03] VITALS: BP 103/57
== END 2021-07-18 04:01 | disposition home or self-care (01) ==
LOC: EDBD 16:34 → ER 16:34
DX: R07.89 Other chest pain (principal); J45.909 Unspecified asthma, uncomplicated; F41.9 Anxiety disorder, unspecified; F32.9 Major depressive disorder, single episode, unspecified; Z88.6 Allergy status to analgesic agent
CPT/HCPCS: 36415; 71275; 80053; 81001; 83735; 83880; 84484; 85025; 93005; 99285; Q9967

== ENCOUNTER 2021-10-31 07:02 | Inpatient (IN) | payer MEDICARE, MEDICAID ==
[2021-10-29 12:23] LABS: Basophils # (auto) 0 10 ^3/uL (0-0.2); Eosinophils # (auto) 0.2 10 ^3/uL (0-0.8); Hematocrit 39.2 % (36.0-46.0); Lymphocytes # (auto) 1.8 10 ^3/uL (0.4-5.4); Mean Corpuscular Hgb Conc. 31.5 g/dL (32.0-36.0); Monocytes # (auto) 0.3 10 ^3/uL (0-1.3); Neutrophils # (auto) 2.4 10 ^3/uL (1.6-8.6); Red Cell Distribution Width 14.6 % (11.8-14.3)
[2021-10-29 12:24] LABS: INR 1.08 (0.9-1.15); Partial Thromboplastin Time 29.7 sec (23.6-33.0)
[2021-10-29 12:25] LABS: Basophils % (auto) 0.9 % (0.0-2.0); Eosinophils % (auto) 4.2 % (0.0-7.0); Hemoglobin 12.3 g/dL (12.2-16.2); Lymphocytes % (auto) 37.4 % (10.0-50.0); Mean Corpuscular Volume 79.4 fL (80.0-100.0); Neutrophils % (auto) 50.5 % (37.0-80.0); Nucleated Red Blood Cells % 0.2 %; Red Blood Cells 4.93 10^6/uL (4.0-5.20); White Blood Cell 4.8 10^3/uL (4.4-10.8)
[2021-10-29 12:53] LABS: Albumin 4.1 g/dL (3.4-5.0); Calcium 9.2 mg/dL (8.5-10.1); Potassium 4.1 mmol/L (3.5-5.1)
[2021-10-29 12:57] LABS: BUN/Creatinine Ratio 13.8; Bilirubin, Total 0.3 mg/dL (0.2-1.0); Total Protein 7.7 g/dL (6.4-8.2)
[~2021-10-31] VITALS: Ht 167.6 cm; Wt 105.5 kg
[2021-10-31] VITALS (8 sets, daily range): BP systolic 102–146; BP diastolic 62–76
[~2021-10-31 07:02] MED LIST changes: -ASPI-543 PO; +BUPR300T28 PO; -DICL1GEL72 EX; -FAMO-12 PO; -FLUD0.1T2 PO; -FLUT1SPR21; -FURO20TA3 PO; +HYDR12.56 PO; -IBUP800T27 PO; +METF-370 PO; -METO-289 PO; -MIRT1TAB38 PO; +MULT-1018 PO; +OXYC-963 PO; +PRED10TA PO; +PREG50CA PO; +PROM25TA5 PO
[2021-10-31] MEDS ORDERED: HYDROmorphone HCL 2 MG/ML VL/or syr IV ONE (08:45)
[2021-10-31] MEDS ORDERED: ONDANSETRON HCL 4 MG/2 ML VIAL IV ONE (08:45)
[2021-10-31] MEDS ORDERED: VANCOMYCIN 1GM/250ML 250 ML IV ONE (09:12)
[2021-10-31] MEDS ORDERED: HYDROmorphone HCL 2 MG/ML VL/or syr ONE (09:12)
[2021-10-31] MEDS ORDERED: MIDAZOLAM HCL 2MG/2ML 2ml VIAL (1mg/ml) ONE ×2 (09:12→10:19)
[2021-10-31] MEDS ORDERED: VANCOMYCIN HCL 1000 MG VL ONE (09:12)
[2021-10-31] MEDS ORDERED: HYDROcodone-ACET 10/325MG TAB PO PRN (11:00)
[2021-10-31] MEDS ORDERED: NITROGLYCERIN 0.4 MG SL TAB SL PRN (11:00)
[2021-10-31] MEDS ORDERED: MORPHINE SULFATE INJ 2 MG/ml SYRG IV PRN (11:00)
[2021-10-31] MEDS ORDERED: PROMETHAZINE HCL 25 MG/ML 1ML IV ONE (11:30)
[2021-10-31] MEDS ORDERED: DEXTROSE (50%) 50ML SYRG IV PRN (13:00)
[2021-10-31] MEDS ORDERED: ONDANSETRON HCL 4 MG/2 ML VIAL IV PRN (16:30)
[2021-10-31] MEDS: ALBUTEROL SULF 2.5 MG/0.5ML(0.5%) NEB SOLN NEB PRN ×2 (16:31→22:11)
[2021-10-31] MEDS: PROMETHAZINE HCL 25 MG/ML 1ML IV PRN ×2 (16:55→21:41)
[2021-10-31] MEDS: InsuLIN REG 1unit/0.01ml Soln (100units/ml) SC SCH ×2 (17:00→22:00)
[2021-10-31] MEDS: HYDROmorphone HCL 2 MG/ML VL/or syr IV PRN ×2 (17:07→21:41)
[2021-10-31] MEDS: ACCU-CHEK COMFORT CURVE STRIP VI SCH ×2 (17:43→21:58)
[2021-10-31] MEDS: metFORMIN HYDROCHLORIDE 500 MG TAB PO SCH (18:07)
[2021-10-31] MEDS: CRESTOR 40MG PO SCH (21:57)
[2021-10-31] MEDS: AMITIZA 24MCG PO SCH (21:57)
[2021-10-31] MEDS: FENOFIBRATE 145MG PO SCH (21:57)
[2021-10-31] MEDS ORDERED: QUEtiapine FUMARATE 100 MG TAB PO SCH (22:00)
[2021-10-31] MEDS: PANTOPRAZOLE 40 MG TAB PO SCH (22:24)
[2021-10-31] MEDS: QUEtiapine FUMARATE 100 MG TAB PO SCH (22:25)
[2021-11-01 02:08] VITALS: BP 98/56
[2021-11-01 05:09] VITALS: BP 107/58
[2021-11-01] MEDS: HYDROmorphone HCL 2 MG/ML VL/or syr IV PRN ×4 (06:00→21:32)
[2021-11-01] MEDS: ALBUTEROL SULF 2.5 MG/0.5ML(0.5%) NEB SOLN NEB PRN ×2 (06:13→14:36)
[2021-11-01] MEDS: ACCU-CHEK COMFORT CURVE STRIP VI SCH ×4 (06:36→23:07)
[2021-11-01] MEDS: LEVOTHYROXINE SODIUM 25 MCG TAB PO SCH (06:58)
[2021-11-01] MEDS: InsuLIN REG 1unit/0.01ml Soln (100units/ml) SC SCH ×4 (07:00→23:07)
[2021-11-01] MEDS: metFORMIN HYDROCHLORIDE 500 MG TAB PO SCH (08:25)
[2021-11-01 09:10] VITALS: BP 114/56
[2021-11-01] MEDS: AMITIZA 24MCG PO SCH ×2 (10:00→22:00)
[2021-11-01] MEDS: PROMETHAZINE HCL 25 MG/ML 1ML IV PRN ×3 (11:30→21:31)
[2021-11-01 13:00] VITALS: BP 126/57
[2021-11-01 17:00] VITALS: BP 111/62
[2021-11-01 22:00] VITALS: BP 127/61
[2021-11-01] MEDS: FENOFIBRATE 145MG PO SCH (22:00)
[2021-11-01] MEDS: CRESTOR 40MG PO SCH (22:00)
[2021-11-01] MEDS: PANTOPRAZOLE 40 MG TAB PO SCH (23:06)
[2021-11-02] MEDS: QUEtiapine FUMARATE 100 MG TAB PO SCH ×2 (00:19→22:35)
[2021-11-02] MEDS: IPRATROPIUM BROM 0.5 MG/2.5ML INH SOL NEB PRN ×2 (00:28→14:39)
[2021-11-02] MEDS: ALBUTEROL SULF 2.5 MG/0.5ML(0.5%) NEB SOLN NEB PRN ×2 (00:28→14:39)
[2021-11-02 05:00] VITALS: BP 94/47
[2021-11-02 06:16] LABS: Basophils # (auto) 0 10 ^3/uL (0-0.2); Basophils % (auto) 0.8 % (0.0-2.0); Eosinophils # (auto) 0.2 10 ^3/uL (0-0.8); Eosinophils % (auto) 4.3 % (0.0-7.0); Hematocrit 34.7 % (36.0-46.0); Lymphocytes # (auto) 1.7 10 ^3/uL (0.4-5.4); Lymphocytes % (auto) 34.7 % (10.0-50.0); Mean Corpuscular Hemoglobin 25.1 pg (28.0-32.0); Mean Corpuscular Hgb Conc. 31.7 g/dL (32.0-36.0); Monocytes # (auto) 0.4 10 ^3/uL (0-1.3); Monocytes % (auto) 8.5 % (0.0-12.0); Neutrophils # (auto) 2.5 10 ^3/uL (1.6-8.6); Neutrophils % (auto) 51.7 % (37.0-80.0); Nucleated Red Blood Cells % 0.1 %; Red Blood Cells 4.39 10^6/uL (4.0-5.20); Red Cell Distribution Width 14.8 % (11.8-14.3); White Blood Cell 4.9 10^3/uL (4.4-10.8)
[2021-11-02 06:34] LABS: Calcium 8.2 mg/dL (8.5-10.1); Magnesium 2.1 mg/dL (1.6-2.6); Potassium 3.9 mmol/L (3.5-5.1)
[2021-11-02 06:37] LABS: BUN/Creatinine Ratio 15.1
[2021-11-02] MEDS: InsuLIN REG 1unit/0.01ml Soln (100units/ml) SC SCH ×4 (07:00→22:30)
[2021-11-02] MEDS: ACCU-CHEK COMFORT CURVE STRIP VI SCH ×4 (07:02→22:36)
[2021-11-02] MEDS: LEVOTHYROXINE SODIUM 25 MCG TAB PO SCH (07:03)
[2021-11-02 09:00] VITALS: BP 128/66
[2021-11-02] MEDS: ENOXAPARIN SOD 40 MG/0.4 ML SYRINGE SC SCH (09:41)
[2021-11-02] MEDS: AMITIZA 24MCG PO SCH ×2 (10:00→22:36)
[2021-11-02] MEDS: PROMETHAZINE HCL 25 MG/ML 1ML IV PRN ×3 (10:26→20:26)
[2021-11-02] MEDS: HYDROmorphone HCL 2 MG/ML VL/or syr IV PRN ×3 (10:26→20:52)
[2021-11-02] MEDS ORDERED: buPROPion HCL 75 MG TAB PO ONE (11:00)
[2021-11-02] MEDS ORDERED: PREGABALIN 25 MG CAP PO ONE (11:00)
[2021-11-02 13:00] VITALS: BP 125/60
[2021-11-02] MEDS ORDERED: AZITHROMYCIN 500MG/ 250ML 250 ML IV ONE (13:15)
[2021-11-02] MEDS ORDERED: cefTRIAXone 1GM/50ML D5W 50 ML IV ONE (13:15)
[2021-11-02] MEDS ORDERED: ALBUTEROL SULF 2.5 MG/0.5ML(0.5%) NEB SOLN NEB PRN (14:45)
[2021-11-02 17:00] VITALS: BP 111/54
[2021-11-02 21:39] VITALS: BP 133/57
[2021-11-02] MEDS ORDERED: QUEtiapine FUMARATE 100 MG TAB PO SCH (22:00)
[2021-11-02] MEDS ORDERED: lamoTRIgine 100 MG TAB PO ONE (22:00)
[2021-11-02] MEDS ORDERED: busPIRone HCL 10 MG TAB PO ONE (22:00)
[2021-11-02] MEDS: FENOFIBRATE 145MG PO SCH (22:34)
[2021-11-02] MEDS: PREGABALIN 25 MG CAP PO SCH (22:35)
[2021-11-02] MEDS: PANTOPRAZOLE 40 MG TAB PO SCH (22:35)
[2021-11-02] MEDS: CRESTOR 40MG PO SCH (22:36)
[2021-11-02] MEDS: IPRATROPIUM BROM 0.5 MG/2.5ML INH SOL NEB SCH (22:40)
[2021-11-02] MEDS: ALBUTEROL SULF 2.5 MG/0.5ML(0.5%) NEB SOLN NEB SCH (22:40)
[2021-11-02] MEDS: BUDESONIDE (INHALATION) 0.5 MG/2 ML NEB NEB SCH (22:41)
[2021-11-03 05:00] VITALS: BP 99/50
[2021-11-03] MEDS: BUDESONIDE (INHALATION) 0.5 MG/2 ML NEB NEB SCH ×2 (06:36→22:25)
[2021-11-03] MEDS: ALBUTEROL SULF 2.5 MG/0.5ML(0.5%) NEB SOLN NEB SCH ×3 (06:36→22:24)
[2021-11-03] MEDS: IPRATROPIUM BROM 0.5 MG/2.5ML INH SOL NEB SCH ×3 (06:36→22:24)
[2021-11-03] MEDS: InsuLIN REG 1unit/0.01ml Soln (100units/ml) SC SCH ×4 (07:00→22:00)
[2021-11-03] MEDS: ACCU-CHEK COMFORT CURVE STRIP VI SCH ×4 (07:11→22:00)
[2021-11-03] MEDS: LEVOTHYROXINE SODIUM 25 MCG TAB PO SCH (07:11)
[2021-11-03 07:25] LABS: Hematocrit 35.2 % (36.0-46.0); Hemoglobin 11.4 g/dL (12.2-16.2)
[2021-11-03 07:46] LABS: Magnesium 2.6 mg/dL (1.6-2.6)
[2021-11-03 09:00] VITALS: BP 101/56
[2021-11-03] MEDS ORDERED: buPROPion HCL 75 MG TAB PO ONE (10:00)
[2021-11-03] MEDS: SODIUM CHLORIDE 0.9% 1,000 ML IV SCH (11:15)
[2021-11-03] MEDS: AZITHROMYCIN 500MG/ 250ML 250 ML IV SCH (11:19)
[2021-11-03] MEDS: ENOXAPARIN SOD 40 MG/0.4 ML SYRINGE SC SCH (11:19)
[2021-11-03] MEDS: PREGABALIN 25 MG CAP PO SCH ×2 (11:20→23:11)
[2021-11-03] MEDS: AMITIZA 24MCG PO SCH ×2 (11:21→23:11)
[2021-11-03] MEDS: cefTRIAXone 1GM/50ML D5W 50 ML IV SCH (11:23)
[2021-11-03] MEDS: PROMETHAZINE HCL 25 MG/ML 1ML IV PRN ×2 (11:29→20:35)
[2021-11-03] MEDS: HYDROmorphone HCL 2 MG/ML VL/or syr IV PRN ×3 (11:29→20:35)
[2021-11-03] MEDS ORDERED: THROAT LOZENGES(CEPASTAT) MT PRN (11:45)
[2021-11-03 13:00] VITALS: BP 129/68
[2021-11-03 13:38] LABS: Urine Bacteria NONE SEEN /hpf (None Seen); Urine Blood Negative /uL (Negative); Urine Specific Gravity 1.007 (1.001-1.035); Urine WBC <1 /hpf (0 - 5)
[2021-11-03 17:00] VITALS: BP 111/64
[2021-11-03 22:00] VITALS: BP 124/59
[2021-11-03] MEDS: FENOFIBRATE 145MG PO SCH (23:11)
[2021-11-03] MEDS: CRESTOR 40MG PO SCH (23:11)
[2021-11-03] MEDS: QUEtiapine FUMARATE 100 MG TAB PO SCH (23:12)
[2021-11-03] MEDS: PANTOPRAZOLE 40 MG TAB PO SCH (23:12)
[2021-11-03 23:41] VITALS: BP 124/59
[2021-11-04] MEDS: PROMETHAZINE HCL 25 MG/ML 1ML IV PRN ×4 (02:37→21:13)
[2021-11-04] MEDS: HYDROmorphone HCL 2 MG/ML VL/or syr IV PRN ×4 (02:37→21:14)
[2021-11-04] MEDS: SODIUM CHLORIDE 0.9% 1,000 ML IV SCH ×2 (03:55→20:35)
[2021-11-04 05:00] VITALS: BP 105/54
[2021-11-04] MEDS: BUDESONIDE (INHALATION) 0.5 MG/2 ML NEB NEB SCH ×2 (06:19→22:19)
[2021-11-04] MEDS: ALBUTEROL SULF 2.5 MG/0.5ML(0.5%) NEB SOLN NEB SCH ×3 (06:19→22:19)
[2021-11-04] MEDS: IPRATROPIUM BROM 0.5 MG/2.5ML INH SOL NEB SCH ×3 (06:19→22:18)
[2021-11-04 06:47] LABS: BUN/Creatinine Ratio 14.7; Calcium 8.8 mg/dL (8.5-10.1); Potassium 4.4 mmol/L (3.5-5.1)
[2021-11-04] MEDS: ACCU-CHEK COMFORT CURVE STRIP VI SCH ×4 (06:48→21:13)
[2021-11-04] MEDS: LEVOTHYROXINE SODIUM 25 MCG TAB PO SCH (06:48)
[2021-11-04] MEDS: InsuLIN REG 1unit/0.01ml Soln (100units/ml) SC SCH ×4 (07:30→22:00)
[2021-11-04 09:00] VITALS: BP 125/65
[2021-11-04] MEDS: AZITHROMYCIN 500MG/ 250ML 250 ML IV SCH (10:00)
[2021-11-04] MEDS: cefTRIAXone 1GM/50ML D5W 50 ML IV SCH (10:05)
[2021-11-04] MEDS: PREGABALIN 25 MG CAP PO SCH ×2 (10:05→21:13)
[2021-11-04] MEDS: APIXABAN 5 MG TAB PO SCH ×2 (10:05→21:12)
[2021-11-04] MEDS: AMITIZA 24MCG PO SCH ×2 (11:46→21:11)
[2021-11-04 13:00] VITALS: BP 102/52
[2021-11-04 16:17] VITALS: BP 125/69
[2021-11-04 21:00] VITALS: BP 109/57
[2021-11-04] MEDS: FENOFIBRATE 145MG PO SCH (21:12)
[2021-11-04] MEDS: CRESTOR 40MG PO SCH (21:12)
[2021-11-04] MEDS: PANTOPRAZOLE 40 MG TAB PO SCH (21:13)
[2021-11-04] MEDS: QUEtiapine FUMARATE 100 MG TAB PO SCH (21:13)
[2021-11-05] MEDS: PROMETHAZINE HCL 25 MG/ML 1ML IV PRN ×3 (02:30→10:42)
[2021-11-05] MEDS: HYDROmorphone HCL 2 MG/ML VL/or syr IV PRN ×2 (02:31→06:18)
[2021-11-05 05:20] VITALS: BP 114/52
[2021-11-05] MEDS: ACCU-CHEK COMFORT CURVE STRIP VI SCH ×2 (05:50→11:56)
[2021-11-05] MEDS: LEVOTHYROXINE SODIUM 25 MCG TAB PO SCH (06:07)
[2021-11-05] MEDS: InsuLIN REG 1unit/0.01ml Soln (100units/ml) SC SCH ×2 (06:10→11:57)
[2021-11-05 09:00] VITALS: BP 112/59
[2021-11-05] MEDS: PREGABALIN 25 MG CAP PO SCH (09:14)
[2021-11-05] MEDS: AMITIZA 24MCG PO SCH (09:14)
[2021-11-05] MEDS: APIXABAN 5 MG TAB PO SCH (09:14)
[2021-11-05] MEDS: cefTRIAXone 1GM/50ML D5W 50 ML IV SCH (09:14)
[2021-11-05] MEDS: BUDESONIDE (INHALATION) 0.5 MG/2 ML NEB NEB SCH (10:00)
[2021-11-05] MEDS ORDERED: OXYCODONE W/ ACETAMINOPHEN 5/325MG TABLET PO PRN (10:30)
[2021-11-05] MEDS: AZITHROMYCIN 500MG/ 250ML 250 ML IV SCH (10:40)
[2021-11-05] MEDS ORDERED: APIX5TAB PO (11:46)
[2021-11-05] MEDS ORDERED: DOXY-286 PO (11:46)
[2021-11-05 13:00] VITALS: BP 117/74
[2021-11-05] MEDS: SODIUM CHLORIDE 0.9% 1,000 ML IV SCH (13:15)
[2021-11-05 14:12] VITALS: BP 112/59
[2021-11-05] MEDS: ALBUTEROL SULF 2.5 MG/0.5ML(0.5%) NEB SOLN NEB SCH (14:14)
[2021-11-05] MEDS: IPRATROPIUM BROM 0.5 MG/2.5ML INH SOL NEB SCH (14:15)
== END 2021-11-05 15:30 | disposition home or self-care (01) | DRG 242 ==
LOC: CATH 07:02 → TELE 10:56 → TELE-WESTW 12:55
PROVIDERS: ADMIT Internal Medicine; ATTEND Internal Medicine
PROC: 0JH606Z Insertion of Pacemaker, Dual Chamber into Chest Subcutaneous Tissue and Fascia, Open Approach (ICD-10-PCS; principal; 2021-10-31)
PROC: 02H63JZ Insertion of Pacemaker Lead into Right Atrium, Percutaneous Approach (ICD-10-PCS; 2021-10-31)
PROC: 02HK3JZ Insertion of Pacemaker Lead into Right Ventricle, Percutaneous Approach (ICD-10-PCS; 2021-10-31)
PROC: 5A09357 Assistance with Respiratory Ventilation, Less than 24 Consecutive Hours, Continuous Positive Airway Pressure (ICD-10-PCS; 2021-10-31)
PROC: 5A09357 Assistance with Respiratory Ventilation, Less than 24 Consecutive Hours, Continuous Positive Airway Pressure (ICD-10-PCS; 2021-11-02)
PROC: 5A09357 Assistance with Respiratory Ventilation, Less than 24 Consecutive Hours, Continuous Positive Airway Pressure (ICD-10-PCS; 2021-11-03)
PROC: 4B02XSZ Measurement of Cardiac Pacemaker, External Approach (ICD-10-PCS; 2021-11-05)
DX: I49.5 Sick sinus syndrome (principal); J18.9 Pneumonia, unspecified organism; D68.51 Activated protein C resistance; J44.0 Chronic obstructive pulmonary disease with (acute) lower respiratory infection; G47.33 Obstructive sleep apnea (adult) (pediatric); E11.9 Type 2 diabetes mellitus without complications; M79.7 Fibromyalgia; G89.29 Other chronic pain; E03.9 Hypothyroidism, unspecified; Z20.822 Contact with and (suspected) exposure to COVID-19; E78.5 Hyperlipidemia, unspecified; F41.9 Anxiety disorder, unspecified; F32.A Depression, unspecified; E66.9 Obesity, unspecified; I10 Essential (primary) hypertension; E07.9 Disorder of thyroid, unspecified; Z99.3 Dependence on wheelchair; Z68.36 Body mass index [BMI] 36.0-36.9, adult
CPT/HCPCS: 33208; 36415; 71045; 71250; 80048; 80053; 80061; 81001; 82306; 82962; 83036; 83735; 83880; 84132; 84443; 84484; 84702; 85014; 85018; 85025; 85379; 85610; 85730; 93005; 93306; 93970; 94640; 94660; 97110; 97163; 97530; 99152; 99153; C1785; G0378; J0696; J1815; J2250; J2405

== ENCOUNTER → 2021-12-19 | Outpatient (CLI) | payer MEDICARE, MEDICAID ==
[~2021-12-19] MED LIST changes: +APIX5TAB PO; +DOXY-286 PO; -HYDR12.56 PO
[2021-12-19 14:59] LABS: Basophils # (auto) 0 10 ^3/uL (0-0.2); Basophils % (auto) 0.8 % (0.0-2.0); Eosinophils # (auto) 0.1 10 ^3/uL (0-0.8); Eosinophils % (auto) 2.8 % (0.0-7.0); Hematocrit 35.6 % (36.0-46.0); Hemoglobin 11.3 g/dL (12.2-16.2); Lymphocytes # (auto) 1.5 10 ^3/uL (0.4-5.4); Lymphocytes % (auto) 29.4 % (10.0-50.0); Mean Corpuscular Hgb Conc. 31.7 g/dL (32.0-36.0); Mean Corpuscular Volume 78.9 fL (80.0-100.0); Monocytes # (auto) 0.4 10 ^3/uL (0-1.3); Monocytes % (auto) 7.6 % (0.0-12.0); Neutrophils # (auto) 3.1 10 ^3/uL (1.6-8.6); Neutrophils % (auto) 59.4 % (37.0-80.0); Nucleated Red Blood Cells % 0.1 %; Red Blood Cells 4.52 10^6/uL (4.0-5.20); Red Cell Distribution Width 14.3 % (11.8-14.3); White Blood Cell 5.2 10^3/uL (4.4-10.8)
[2021-12-19 15:19] LABS: INR 1.02 (0.9-1.15); Partial Thromboplastin Time 30.8 sec (24.6-33.4)
[2021-12-19 16:22] LABS: BUN/Creatinine Ratio 13.9; Calcium 9.6 mg/dL (8.5-10.1)
== END | disposition home or self-care (01) ==
LOC: LAB 14:36
PROVIDERS: ATTEND Anesthesiology Pain Medicine
DX: R79.1 Abnormal coagulation profile (principal); Z79.01 Long term (current) use of anticoagulants
CPT/HCPCS: 36415; 80048; 85025; 85610; 85730

== ENCOUNTER → 2022-02-27 | Outpatient (CLI) | payer MEDICARE, MEDICAID ==
[2022-02-27 14:37] LABS: Eosinophils # (auto) 0.2 10 ^3/uL (0-0.8); Lymphocytes # (auto) 1.7 10 ^3/uL (0.4-5.4); Monocytes # (auto) 0.4 10 ^3/uL (0-1.3); Red Cell Distribution Width 13.8 % (11.8-14.3)
[2022-02-27 14:40] LABS: Basophils # (auto) 0.1 10 ^3/uL (0-0.2); Hemoglobin 12.1 g/dL (12.2-16.2); Lymphocytes % (auto) 29.4 % (10.0-50.0); Mean Corpuscular Hemoglobin 26.4 pg (28.0-32.0); Mean Corpuscular Hgb Conc. 33.6 g/dL (32.0-36.0); Mean Corpuscular Volume 78.5 fL (80.0-100.0); Monocytes % (auto) 7.8 % (0.0-12.0); Neutrophils # (auto) 3.3 10 ^3/uL (1.6-8.6); Neutrophils % (auto) 58.8 % (37.0-80.0); Red Blood Cells 4.59 10^6/uL (4.0-5.20); White Blood Cell 5.6 10^3/uL (4.4-10.8)
[2022-02-27 14:53] LABS: INR 1.01 (0.9-1.15); Partial Thromboplastin Time 31.4 sec (24.6-33.4)
[2022-02-27 15:03] LABS: Albumin 4.2 g/dL (3.4-5.0); BUN/Creatinine Ratio 16.3; Potassium 4.1 mmol/L (3.5-5.1)
[2022-02-27 15:06] LABS: Bilirubin, Total 0.3 mg/dL (0.2-1.0)
== END | disposition home or self-care (01) ==
LOC: LAB 14:09
PROVIDERS: ATTEND Anesthesiology Pain Medicine
DX: R79.1 Abnormal coagulation profile (principal); Z79.01 Long term (current) use of anticoagulants
CPT/HCPCS: 36415; 80053; 85025; 85610; 85730

== ENCOUNTER 2022-05-29 08:58 | Emergency (ER) | payer MEDICARE, MEDICAID ==
[~2022-05-29] VITALS: Ht 167.6 cm; Wt 88.0 kg
[2022-05-29 09:16] LABS: Basophils # (auto) 0 10 ^3/uL (0-0.2); Basophils % (auto) 0.7 % (0.0-2.0); Eosinophils # (auto) 0.2 10 ^3/uL (0-0.8); Hemoglobin 12.5 g/dL (12.2-16.2); Lymphocytes # (auto) 1.5 10 ^3/uL (0.4-5.4); Monocytes # (auto) 0.4 10 ^3/uL (0-1.3); Nucleated Red Blood Cells % 0.1 %; Red Cell Distribution Width 14.1 % (11.8-14.3)
[2022-05-29 09:17] LABS: Eosinophils % (auto) 3.8 % (0.0-7.0); Hematocrit 37.6 % (36.0-46.0); Lymphocytes % (auto) 23.4 % (10.0-50.0); Mean Corpuscular Hemoglobin 26.5 pg (28.0-32.0); Mean Corpuscular Hgb Conc. 33.3 g/dL (32.0-36.0); Mean Corpuscular Volume 79.8 fL (80.0-100.0); Monocytes % (auto) 5.6 % (0.0-12.0); Neutrophils # (auto) 4.2 10 ^3/uL (1.6-8.6); Neutrophils % (auto) 66.5 % (37.0-80.0); Red Blood Cells 4.72 10^6/uL (4.0-5.20); White Blood Cell 6.3 10^3/uL (4.4-10.8)
[2022-05-29 09:24] VITALS: BP 131/81
[2022-05-29 09:30] LABS: INR 0.99 (0.9-1.15); Partial Thromboplastin Time 32.3 sec (24.6-33.4)
[2022-05-29 09:33] LABS: Albumin 4.3 g/dL (3.4-5.0); Calcium 9.5 mg/dL (8.5-10.1); Magnesium 2.2 mg/dL (1.6-2.6); Potassium 4.3 mmol/L (3.5-5.1)
[2022-05-29 09:35] LABS: BUN/Creatinine Ratio 15.1; Bilirubin, Total 0.3 mg/dL (0.2-1.0); Total Protein 7.4 g/dL (6.4-8.2)
[2022-05-29] MEDS ORDERED: ACETAMINOPHEN 325 MG TAB PO ONE (15:00)
== END 2022-05-29 16:10 | disposition left against medical advice (07) ==
LOC: ER 08:58
DX: R07.89 Other chest pain (principal); B34.9 Viral infection, unspecified; F17.210 Nicotine dependence, cigarettes, uncomplicated; Z79.899 Other long term (current) drug therapy
CPT/HCPCS: 36415; 71045; 80053; 83735; 83880; 84484; 85025; 85610; 85730; 93005

== ENCOUNTER 2022-08-21 11:12 | Day surgery (SDC) | payer MEDICARE, MEDICAID ==
[2022-08-19 12:10] LABS: Basophils # (auto) 0.1 10 ^3/uL (0-0.2); Eosinophils # (auto) 0.2 10 ^3/uL (0-0.8); Eosinophils % (auto) 4.1 % (0.0-7.0); Hemoglobin 11.9 g/dL (12.2-16.2); Monocytes # (auto) 0.3 10 ^3/uL (0-1.3); Monocytes % (auto) 5.3 % (0.0-12.0); Neutrophils # (auto) 3.1 10 ^3/uL (1.6-8.6); White Blood Cell 5.3 10^3/uL (4.4-10.8)
[2022-08-19 12:12] LABS: Basophils % (auto) 1.1 % (0.0-2.0); Lymphocytes # (auto) 1.6 10 ^3/uL (0.4-5.4); Lymphocytes % (auto) 30.8 % (10.0-50.0); Mean Corpuscular Hemoglobin 26.1 pg (28.0-32.0); Mean Corpuscular Hgb Conc. 32.3 g/dL (32.0-36.0); Mean Corpuscular Volume 80.8 fL (80.0-100.0); Neutrophils % (auto) 58.7 % (37.0-80.0); Nucleated Red Blood Cells % 0.1 %; Red Blood Cells 4.58 10^6/uL (4.0-5.20)
[2022-08-19 12:44] LABS: INR 0.98 (0.9-1.15); Partial Thromboplastin Time 30.2 sec (24.6-33.4)
[2022-08-19 12:51] LABS: Albumin 3.8 g/dL (3.4-5.0); BUN/Creatinine Ratio 14.4 (10.0-20.0); Calcium 9.3 mg/dL (8.5-10.1); Potassium 4.3 mmol/L (3.5-5.1)
[2022-08-19 12:54] LABS: Bilirubin, Total 0.3 mg/dL (0.2-1.0); Total Protein 7.5 g/dL (6.4-8.2)
[~2022-08-21] VITALS: Ht 167.6 cm; Wt 95.3 kg
[2022-08-21] MEDS ORDERED: LIDOCAINE VISCOUS 2% 15ML UD ONE (12:18)
[2022-08-21] MEDS: fentaNYL CITRATE 100 MCG/2 ML VL ONE ×2 (14:05→14:09)
[2022-08-21] MEDS: diphenhdrAMINE HCL 50 MG/1 ML VL ONE ×2 (14:05→14:08)
[2022-08-21] MEDS: MIDAZOLAM HCL 2MG/2ML 2ml VIAL (1mg/ml) ONE ×2 (14:05→14:09)
[2022-08-21 14:40] VITALS: BP 129/76
== END 2022-08-21 15:05 | disposition home or self-care (01) ==
LOC: GI 11:12
PROVIDERS: ATTEND Internal Medicine Gastroenterology
DX: K21.9 Gastro-esophageal reflux disease without esophagitis (principal); K29.50 Unspecified chronic gastritis without bleeding; K31.89 Other diseases of stomach and duodenum; K44.9 Diaphragmatic hernia without obstruction or gangrene; J44.9 Chronic obstructive pulmonary disease, unspecified; F41.8 Other specified anxiety disorders; J18.9 Pneumonia, unspecified organism; E11.9 Type 2 diabetes mellitus without complications; Z82.49 Family history of ischemic heart disease and other diseases of the circulatory system; Z79.84 Long term (current) use of oral hypoglycemic drugs; Z79.51 Long term (current) use of inhaled steroids; Z88.8 Allergy status to other drugs, medicaments and biological substances; Z72.0 Tobacco use; Z83.3 Family history of diabetes mellitus; Z90.710 Acquired absence of both cervix and uterus; Z98.890 Other specified postprocedural states
CPT/HCPCS: 36415; 43239; 80053; 82962; 84702; 85025; 85610; 85730; 88305; 88342; J1200; J2250; J3010; J7030

== ENCOUNTER → 2022-10-29 | Outpatient (CLI) | payer MEDICARE, MEDICAID ==
[~2022-10-29] MED LIST changes: -DULO60CA PO; +DULO60CA41 PO; +PROM25TA10 PO; -PROM25TA5 PO; -ROSU40TA PO; +ROSU40TA81 PO
[2022-10-29 12:06] LABS: Potassium 4.1 mmol/L (3.5-5.1)
[2022-10-29 12:18] LABS: BUN/Creatinine Ratio 16.8 (10.0-20.0); Bilirubin, Total 0.4 mg/dL (0.2-1.0); Calcium 8.7 mg/dL (8.5-10.1); Total Protein 7.4 g/dL (6.4-8.2)
== END | disposition home or self-care (01) ==
LOC: LAB 11:11
DX: I10 Essential (primary) hypertension (principal); R80.9 Proteinuria, unspecified
CPT/HCPCS: 36415; 80053

== ENCOUNTER → 2022-11-04 | Outpatient (CLI) | payer MEDICARE, MEDICAID ==
[2022-11-05 14:40] LABS: Protein, Urine 19.1 mg/dL (0.0-11.9)
[2022-11-05 15:09] LABS: 24 Hr. Total Protein, Urine 439.3 mg/24 Hr (<149.1)
== END | disposition home or self-care (01) ==
LOC: LAB 15:28
DX: I10 Essential (primary) hypertension (principal); R80.9 Proteinuria, unspecified
CPT/HCPCS: 84156

== ENCOUNTER 2023-03-22 15:46 | Emergency (ER) | payer MEDICARE, MEDICAID ==
[~2023-03-22] VITALS: Ht 167.6 cm; Wt 88.6 kg
[2023-03-22 16:00] VITALS: BP 121/99; PULSE 69
[2023-03-22] MEDS ORDERED: ALBUTEROL SULF 2.5 MG/0.5ML(0.5%) NEB SOLN NEB ONE (16:00)
[2023-03-22] MEDS ORDERED: IPRATROPIUM BROM 0.5 MG/2.5ML INH SOL NEB ONE (16:00)
[2023-03-22] MEDS ORDERED: ALBUTEROL MEDNEB 2.5 mg/3ml NEB ONE (16:08)
[2023-03-22 16:25] VITALS: RESP 20; O2SAT 98
[2023-03-22] MEDS ORDERED: methylPREDNISolone SOD SUCC 125 MG/2 ML VL IM ONE (18:00)
[2023-03-22 18:34] LABS: Basophils # (auto) 0.1 10 ^3/uL (0-0.2); Eosinophils # (auto) 0.2 10 ^3/uL (0-0.8); Hemoglobin 12.3 g/dL (12.2-16.2); Lymphocytes # (auto) 2.4 10 ^3/uL (0.4-5.4); Neutrophils # (auto) 3.2 10 ^3/uL (1.6-8.6)
[2023-03-22 18:37] LABS: Basophils % (auto) 0.9 % (0.0-2.0); Eosinophils % (auto) 3.8 % (0.0-7.0); Hematocrit 37.5 % (36.0-46.0); Mean Corpuscular Hemoglobin 26.4 pg (28.0-32.0); Mean Corpuscular Hgb Conc. 32.8 g/dL (32.0-36.0); Mean Corpuscular Volume 80.5 fL (80.0-100.0); Monocytes # (auto) 0.5 10 ^3/uL (0-1.3); Monocytes % (auto) 7.2 % (0.0-12.0); Neutrophils % (auto) 51.1 % (37.0-80.0); Nucleated Red Blood Cells % 0.1 %; Red Blood Cells 4.66 10^6/uL (4.0-5.20); White Blood Cell 6.4 10^3/uL (4.4-10.8)
[2023-03-22 18:54] LABS: Alanine Aminotransferase 34 U/L (7-40); Albumin 4.5 g/dL (3.2-4.8); Alkaline Phosphatase 143 U/L (46-116); Anion Gap 7 (5-15); Aspartate Aminotransferase 24 U/L (13-40); BUN/Creatinine Ratio 22.8 (10.0-20.0); Blood Urea Nitrogen 18 mg/dL (9-23); Calcium 9.4 mg/dL (8.5-10.1); Carbon Dioxide 26 mmol/L (20-30); Chloride 107 mmol/L (98-107); Glucose 97 mg/dL (74-106); Potassium 4.4 mmol/L (3.5-5.1); Sodium 140 mmol/L (136-145)
[2023-03-22 18:55] LABS: Bilirubin, Total 0.2 mg/dL (0.2-1.0); Total Protein 6.6 g/dL (5.7-8.2)
== END 2023-03-22 18:58 | disposition left against medical advice (07) ==
LOC: ER 15:46
DX: J44.9 Chronic obstructive pulmonary disease, unspecified (principal); F17.210 Nicotine dependence, cigarettes, uncomplicated; R07.89 Other chest pain
CPT/HCPCS: 36415; 71045; 80053; 83605; 83880; 85025; 94640; 99284; J7644